=== PATIENT | male | born 1960 | race Caucasian/White ===

== ENCOUNTER 2017-05-17 22:07 | Inpatient (IN) | payer OTHER ==
[~2017-05-17] VITALS: Ht 177.8 cm; Wt 95.0 kg
[~2017-05-17 22:07] MED LIST: ATEN-100 PO; ATOR20TA PO; IPRA0.02 NEB; METF500 PO; MONT10TA2 PO; NITR.4 SL; PRED5TAB; ROPI1TAB; SYMB160A INH; WARF5TAB PO; WARF7.5T4 PO; Z.0.OXYGENDME NC
[2017-05-17 22:11] VITALS: BP 146/86; PULSE 84; RESP 16; TEMP 97.9; O2SAT 93
[2017-05-17] MEDS ORDERED: METF1000 PO (22:29)
[2017-05-17] MEDS ORDERED: GLIM2TAB PO (22:29)
[2017-05-17] MEDS ORDERED: WARF-23 PO (22:29)
[2017-05-17] MEDS ORDERED: IPRASOL INH ×2 (22:29)
[2017-05-17] MEDS ORDERED: UMEC1AER INH (22:29)
[2017-05-17] MEDS ORDERED: PRED5TAB PO (22:29)
[2017-05-17] MEDS ORDERED: VARE1PAK3 (22:29)
[2017-05-17] MEDS ORDERED: ATEN25TA PO (22:29)
[2017-05-17] MEDS ORDERED: VENTAER INH (22:29)
[2017-05-17] MEDS ORDERED: MONTPOW2 (22:29)
[2017-05-17] MEDS ORDERED: ATOR20TA15 PO (22:29)
[2017-05-17] MEDS: RESP: ALBUTEROL 2.5 MG/IPRATROPIUM 0.5 MG NEB (SCH) INH (22:37)
[2017-05-17] MEDS ORDERED: SODIUM CHLORIDE 0.9% FLUSH 10 ML FLUSH IVF PRN (22:45)
[2017-05-17] MEDS ORDERED: methylPREDNISolone SOD SUCC 125 MG/2 ML VIAL IVP ONE (22:45)
[2017-05-17 22:49] VITALS: BP 125/81; PULSE 80; RESP 22; O2SAT 97
[2017-05-17 22:58] LABS: AUTOMATED NEUTROPHIL # 7.2 TH/MM3 (1.8-7.7); BASOPHIL # 0.1 TH/MM3 (0-0.2); BASOPHIL % 0.9 % (0.0-2.0); EOSINOPHIL # 0.3 TH/MM3 (0-0.4); EOSINOPHIL % 3.1 % (0.0-4.0); HEMATOCRIT 44.2 % (39.0-51.0); HEMO FLAGS DIFF FINAL; LYMPH % 18.2 % (9.0-44.0); LYMPHOCYTE # 1.8 TH/MM3 (1.0-4.8); MEAN CELL VOLUME 85.1 FL (80.0-100.0); MEAN CORPUSCULAR HEMOGLOBIN 29.6 PG (27.0-34.0); MEAN CORPUSCULAR HGB CONC 34.8 % (32.0-36.0); NEUT % 72.8 % (16.0-70.0); PLATELET COUNT 184 TH/MM3 (150-450); RED CELL DISTRIBUTION WIDTH 13.2 % (11.6-17.2); WHITE BLOOD COUNT 9.9 TH/MM3 (4.0-11.0)
--- NOTE | 2017-05-17 23:00 | RADRPT ---
EXAM DATE/TIME: 05/17/2017 22:46 [place] COMPARISON: CHEST SINGLE AP, July 09, 2016, 23:28. INDICATIONS : Short of breath. MEDICAL HISTORY : Hypertension. Diabetes mellitus type II. Chronic obstructive pulmonary disease. A-Fib. Asthma. SURGICAL HISTORY : CABG. ENCOUNTER: Initial ACUITY: 1 day PAIN SCORE: 0/10 LOCATION: Bilateral chest FINDINGS: The cardiac silhouette is normal in transverse diameter. The lungs are free of acute parenchymal opac ity. No effusions are identified. Median sternotomy wires are present. There is parenchymal scarring bilaterally. CONCLUSION: 1. No acute cardiopulmonary disease. Jose A Amado MD on May 17, 2017 at 22:58 Board Certified Radiologist. This report was verified electronically.
[2017-05-17 23:15] LABS: APTT (PATIENT) 28.9 SEC (24.3-30.1); CHLORIDE 108 MEQ/L (98-107); INTERNATIONAL NORMALIZED RATIO 1.3 RATIO; POTASSIUM 3.8 MEQ/L (3.5-5.1); PROTHROMBIN TIME - PATIENT 14.2 SEC (9.8-11.6); SODIUM (NA) 139 MEQ/L (136-145)
[2017-05-17 23:18] LABS: ANION GAP 9 MEQ/L (5-15); BICARBONATE 21.6 MEQ/L (21.0-32.0); BLOOD UREA NITROGEN 18 MG/DL (7-18)
[2017-05-17 23:21] LABS: GLOMERULAR FILTRATION RATE 88 ML/MIN (>89)
[2017-05-17 23:24] LABS: CREATINE KINASE 114 U/L (39-308)
[2017-05-17 23:36] LABS: CKMB 1.2 NG/ML (0.5-3.6)
[2017-05-17 23:42] VITALS: BP 126/75; PULSE 88; RESP 20; O2SAT 97
[2017-05-18] VITALS (11 sets, daily range): BP systolic 110–157; BP diastolic 69–85; PULSE 82–107; RESP 17–23; TEMP 97.5–98.5; O2SAT 93–100
[2017-05-18 00:13] LABS: BLOOD, URINE LARGE (NEG); GLUCOSE,URINE NEG (NEG); KETONE, URINE TRACE mg/dL (NEG); NITRITE,URINE NEG (NEG); PH, URINE 5.5 (5.0-8.5)
--- NOTE | 2017-05-18 00:21 | PD ---
HPI Chief Complaint: Respiratory Symptoms Time Seen by Provider: 22:51 Travel History International Travel<30 days: No Contact w/Intl Traveler<30days: No Traveled to known affect area: No History of Present Illness HPI 57-year-old male presents to the emergency department with progressive worsening shortness of breath since yesterday with mild sore throat. Patient states her throat has resolved but his shortness of breath and wheezing has persisted. No productive cough. No fever chills. Patient does complain of chest tightness but no chest pain. No pleuritic pain. No lower extremity pain or swelling. No recent long distance travel protracted bedrest her surgical procedure. Patient does have history of COPD/emphysema and does use supplemental oxygen at all times. Patient admits to to continued ongoing tobacco use. Patient also has history of aortic valve replacement CAD with 20% disease in one vessel on 40% disease and second vessel by cardiac catheterization 06/2016 atrial fibrillation hypertension diabetes and dyslipidemia. Patient rates pain 0/10 in intensity. PFSH Past Medical History Narrative Medical Coumadin anti-coagulation atrial fibrillation aortic valve replacement CAD dyslipidemia hypertension diabetes tobaccoism; cardiac catheterization cardiac ablation aortic valve replacement Coumadin use tobacco use; nursing notes reviewed Hx Anticoagulant Therapy: Yes Asthma: Yes Atrial Fibrillation: Yes Autoimmune Disease: No Heart Rhythm Problems: Yes (A FIB) Cancer: No Cardiovascular Problems: Yes (mechanical aortic valve) High Cholesterol: Yes Chest Pain: Yes Congestive Heart Failure: No COPD: Yes Cerebrovascular Accident: No Diabetes: Yes Patient Takes Glucophage: Yes Diminished Hearing: No Endocrine: Yes Genitourinary: Yes Hypertension: Yes Immune Disorder: No Implanted Vascular Access Dvce: Yes (AORTIC VALVE ) Kidney Stones: Yes Musculoskeletal: No Neurologic: No Psychiatric: No Reproductive: No Respiratory: Yes (COPD) Integumentary: Yes (VENOUS ABLATION RIGHT UPPER THIGH) Immunizations Current: Yes Migraines: No Renal Failure: No Seizures: No Sleep Apnea: Yes (C-PAP AT HOME) Thyroid Disease: No Tetanus Vaccination: Unknown Influenza Vaccination: No ?: Not Past Surgical History Abdominal Surgery: No AICD: No Arteriovenous Shunt: No Body Medical Devices: MECHANICAL HEART VALVE Cardiac Surgery: Yes (AORTIC VALVE REPLACEMENT) Ear Surgery: No Endocrine Surgery: No Eye Surgery: No Genitourinary Surgery: No Gynecologic Surgery: No Insulin Pump: No Joint Replacement: No Neurologic Surgery: Yes (restless leg syndrome cured with ablasion) Oral Surgery: No Pacemaker: No Thoracic Surgery: No Other Surgery: Yes (LEFT HAND NERVE REPAIR) Social History Alcohol Use: No Tobacco Use: Yes Substance Use: No Allergies-Medications (Allergen,Severity, Reaction): Coded Allergies: Penicillin (Verified Allergy, Unknown, UNKNOWN, 05/17/17) Reported Meds & Prescriptions Reported Meds & Active Scripts Active Reported Chantix Starting Month Pack (Varenicline) 0.5 mg X 11 & 1 mg X 42 Pack Atorvastatin (Atorvastatin Calcium) 20 Mg Tab 20 Mg PO HS Glimepiride 2 Mg Tab 2 Mg PO DAILY Take with breakfast or first main meal Warfarin 5 Mg Tab 5 Mg PO DAILY Ventolin Hfa 18 GM Inh (Albuterol Sulfate) 90 Mcg/Act Aer 2 Puff INH Q4-6H PRN Prednisone 5 Mg Tab 5 Mg PO DAILY Montelukast Sodium (Montelukast Sodium (Bulk)) 1 Pow Pow 10 Mg Metformin (Metformin HCl) 1,000 Mg Tab 1,000 Mg PO BIDPC With meals Duoneb (Ipratropium-Albuterol Neb) 0.5-2.5 Mg/3 Ml Neb 1 Nebule INH QID Duoneb (Ipratropium-Albuterol Neb) 0.5-2.5 Mg/3 Ml Neb 1 Nebule INH Q4HR NEB PRN Atenolol 25 Mg Tab 25 Mg PO DAILY Anoro Ellipta Inh (Umeclidinium/Vilanterol) 62.5-25 Mcg/Act Aero 1 Puff INH DAILY Review of Systems Except as stated in HPI: all other systems reviewed are Neg General / Constitutional: No: Fever, Chills HENT: Positive: Sore Throat, No: Congestion Cardiovascular: No: Chest Pain or Discomfort Respiratory: Positive: Cough, Shortness of Breath, Wheezing Gastrointestinal: No: Vomiting, Abdominal Pain Genitourinary: No: Decreased Urinary Output, Flank Pain Musculoskeletal: No: Myalgias, Arthralgias, Edema, Pain Skin: No Rash Neurologic: No: Weakness Psychiatric: No: Anxiety Endocrine: No: Heat Intolerance Hematologic/Lymphatic: No: Easy Bruising Physical Exam Narrative GENERAL: Well-developed well-nourished male in mild to moderate respiratory distress on supplemental oxygen SKIN: Warm and dry. HEAD: Normocephalic. EYES: No scleral icterus. No injection or drainage. NECK: Supple, trachea midline. No JVD or lymphadenopathy. CARDIOVASCULAR: Regular rate and rhythm without murmurs, gallops, or rubs. RESPIRATORY: Breath sounds equal bilaterally marked diffuse wheezing in all faust. No accessory muscle use. GASTROINTESTINAL: Abdomen soft, non-tender, nondistended. MUSCULOSKELETAL: No cyanosis, or edema. Radial and dorsalis pedis pulses 2+ to palpation no pedal edema BACK: Nontender without obvious deformity. No CVA tenderness. Data Data Last Documented VS Vital Signs Date Time Temp Pulse Resp B/P Pulse Ox O2 Delivery O2 Flow Rate FiO2 05/17/17 23:42 88 20 126/75 97 Nasal Cannula 2 05/17/17 22:11 97.9 Orders Complete Blood Count With Diff (05/17/17 22:32) Basic Metabolic Panel (Bmp) (05/17/17 22:32) B-Type Natriuretic Peptide (05/17/17 22:32) Act Partial Throm Time (Ptt) (05/17/17 22:32) Prothrombin Time / Inr (Pt) (05/17/17 22:32) Magnesium (Mg) (05/17/17 22:32) Ckmb (Isoenzyme) Profile (05/17/17 22:32) Troponin I (05/17/17 22:32) Urinalysis - C+S If Indicated (05/17/17 22:32) Iv Access Insert/Monitor (05/17/17 22:32) Electrocardiogram (05/17/17 22:32) Ecg Monitoring (05/17/17 22:32) Oximetry (05/17/17 22:32) Oxygen Administration (05/17/17 22:32) Chest, Single Ap (05/17/17 22:32) Sodium Chloride 0.9% Flush (Ns Flush) (05/17/17 22:45) Methylprednisolone So Succ Inj (Solumedr (05/17/17 22:45) Albuterol-Ipratropium Neb (Duoneb Neb) (05/17/17 22:45) CKMB (05/17/17 22:47) CKMB% (05/17/17 22:47) Admit Order (Ed Use Only) (05/18/17 ) ^ Saline Lock (05/18/17 00:28) Resp Oxygen Cale C Titrat 1-4 L (05/18/17 ) Notify Dr: Other (05/18/17 00:28) Sodium Chloride 0.9% Flush (Ns Flush) (05/18/17 09:00) Sodium Chloride 0.9% Flush (Ns Flush) (05/18/17 00:30) Warfarin (Coumadin) (05/18/17 00:30) Group A Rapid Strep Screen (05/18/17 00:29) Labs Laboratory Tests Test 05/17/17 05/18/17 22:47 00:00 White Blood Count 9.9 TH/MM3 Red Blood Count 5.20 MIL/MM3 Hemoglobin 15.4 GM/DL Hematocrit 44.2 % Mean Corpuscular Volume 85.1 FL Mean Corpuscular Hemoglobin 29.6 PG Mean Corpuscular Hemoglobin 34.8 % Concent Red Cell Distribution Width 13.2 % Platelet Count 184 TH/MM3 Mean Platelet Volume 9.3 FL Neutrophils (%) (Auto) 72.8 % Lymphocytes (%) (Auto) 18.2 % Monocytes (%) (Auto) 5.0 % Eosinophils (%) (Auto) 3.1 % Basophils (%) (Auto) 0.9 % Neutrophils # (Auto) 7.2 TH/MM3 Lymphocytes # (Auto) 1.8 TH/MM3 Monocytes # (Auto) 0.5 TH/MM3 Eosinophils # (Auto) 0.3 TH/MM3 Basophils # (Auto) 0.1 TH/MM3 CBC Comment DIFF FINAL Differential Comment Prothrombin Time 14.2 SEC Prothromb Time International 1.3 RATIO Ratio Activated Partial 28.9 SEC Thromboplast Time Sodium Level 139 MEQ/L Potassium Level 3.8 MEQ/L Chloride Level 108 MEQ/L Carbon Dioxide Level 21.6 MEQ/L Anion Gap 9 MEQ/L Blood Urea Nitrogen 18 MG/DL Creatinine 0.89 MG/DL Estimat Glomerular Filtration 88 ML/MIN Rate Random Glucose 178 MG/DL Calcium Level 8.5 MG/DL Magnesium Level 2.0 MG/DL Total Creatine Kinase 114 U/L Creatine Kinase MB 1.2 NG/ML Troponin I LESS THAN 0.02 NG/ML B-Type Natriuretic Peptide 30 PG/ML Urine Color YELLOW Urine Turbidity SLIGHT Urine pH 5.5 Urine Specific [place] 1.035 Urine Protein NEG mg/dL Urine Glucose (UA) NEG mg/dL Urine Ketones TRACE mg/dL Urine Occult Blood LARGE Urine Nitrite NEG Urine Bilirubin NEG Urine Leukocyte Esterase NEG Urine RBC 50-99 /hpf Urine WBC 0-2 /hpf Urine Squamous Epithelial 0-5 /hpf Cells Urine Bacteria NONE /hpf Microscopic Urinalysis Comment CULT NOT INDICATED MDM Medical Decision Making Medical Screen Exam Complete: Yes Emergency Medical Condition: Yes Medical Record Reviewed: Yes Interpretation(s) EKG normal sinus rhythm rate 80 right bundle branch block no acute ST elevation or injury pattern change or ectopy noted Differential Diagnosis Dyspnea, exacerbation COPD, pneumonia, PE, ACS, SC, CHF, arrhythmia, electrolyte disturbance, sepsis Narrative Course Patient placed on monitor IV access obtained EKG performed which reveals normal sinus rhythm rate of 80 right bundle branch block no acute ST elevation or injury pattern imaging studies ordered Patient administered Solu-Medrol 125 mg IV along with 3 DuoNeb updrafts Patient clinically improving after bronchodilator therapy Lab values found to be grossly within normal range chest x-ray reveals no lobar infiltrate or focal abnormality Patient will be admitted for exacerbation of COPD Physician Communication Physician Communication Case discussed with [facility] physician Dr. Metzger will admit patient for exacerbation COPD Diagnosis Primary Impression: COPD with acute exacerbation Admitting Information Admitting Physician Requests: Admit Bouchra Nation MD May 18, 2017 00:21
[2017-05-18 00:22] LABS: URINE COLOR YELLOW (YELLW/STRAW)
[2017-05-18 00:23] LABS: COMMENT (UR) CULT NOT INDICATED; CULTURE IF INDICATED CULT NOT INDICATED; SQUAMOUS EPITHELIAL CELL URINE 0-5 /hpf (0-5); WBC, URINE 0-2 /hpf (0-5)
[2017-05-18] MEDS ORDERED: SODIUM CHLORIDE 0.9% FLUSH 10 ML FLUSH IVF PRN (00:30)
[2017-05-18] MEDS ORDERED: SODIUM CHLORIDE 0.9% FLUSH 10 ML FLUSH IV FLUSH PRN (00:30)
[2017-05-18] MEDS ORDERED: WARFARIN SOD 2.5 MG TAB PO ONE (00:30)
[2017-05-18] MEDS ORDERED: RESP: ALBUTEROL 2.5 MG/IPRATROPIUM 0.5 MG NEB (SCH) NEB ONE (00:45)
[2017-05-18] MEDS ORDERED: WARFARIN SOD 5 MG TAB PO ONE (00:45)
[2017-05-18] MEDS ORDERED: LEVOFLOXACIN 750 MG TAB PO SCH ×2 (01:00→21:00)
[2017-05-18] MEDS: RESP: ALBUTEROL 2.5 MG/IPRATROPIUM 0.5 MG NEB (SCH) NEB ×6 (04:02→23:08)
[2017-05-18] MEDS: methylPREDNISolone SOD SUCC 40 MG/1 ML VIAL IV PUSH SCH ×3 (05:10→21:02)
--- NOTE | 2017-05-18 08:35 | MH ---
cc: ANA LAURA STERLING M.D. DATE OF ADMISSION: 05/18/2017 ADMISSION DIAGNOSIS 1. COPD with acute exacerbation. 2. Type 2 diabetes mellitus. 3. Hyperlipidemia. 4. [employer] Giorgi's mechanical aortic valve. 5. Paroxysmal atrial fibrillation. 6. Sleep apnea. 7. Emphysema. 8. History of asthma. 9. Microhematuria. 10. Chronic Coumadin therapy for his mechanical valve. PERTINENT HISTORY This is a 57-year-old white male who presented to the emergency room with progressive shortness of breath in the last 24 hours prior to admission with slight sore throat. He had a slight runny nose, little bit of increased cough. He denied any fever, chills, no body aches. No nausea, vomiting. He felt tight with his breathing. He had been using his duo-nebulizer treatments at home with no improvement. He has history of asthma since he was young and COPD and emphysema since about 10 years ago. He has been on oxygen therapy at night and only occasionally uses it during the daytime. He is on chronic low dose prednisone therapy as well for his COPD. He was given nebulizer treatments in the ER without significant clinical improvement, he was still tight. He was admitted for IV steroids. He states he feels a little better this morning but still wheezing quite a bit. No other complaints. MEDICAL HISTORY 1. He has as mentioned asthma since he was young and then diagnosed with COPD and emphysema around 10 years ago. 2. He has sleep apnea and uses C-PAP. 3. He has chronic respiratory failure with oxygen at night. 4. He has had atrial fibrillation in the past but is maintained in sinus rhythm. He is on atenolol. 5. He has type 2 diabetes mellitus for about 10 years. 6. Hyperlipidemia. 7. He denies any heart attack or angina. He did have a cardiac cath done on 09/07/2016 which showed just minimal coronary artery disease with a minimal luminal irregularities of the LAD and only a 20% lesion before the first septal. He had a second obtuse marginal branch of the circumflex, had a 40% lesion, otherwise was negative. His cath then showed that he did have a bileaflet mechanical aortic valve. He has had no colon disease and states he had a negative colonoscopy 4 years ago. He has had no liver or kidney disease. No peptic ulcer disease. No cancer. No stroke or seizures. Denies any history of hypertension. PAST SURGICAL HISTORY 1. A [employer] Giorgi's mechanical aortic valve placed, he states around 2012. 2. Had cardiac cath in 2015 as mentioned. 3. Had a colonoscopy around 2011. 4. He has left hand surgery to repair some nerves after he sustained significant lacerations to his finger and hands from a work injury. ALLERGIES PENCILLIN. MEDICATIONS 1. He is on atorvastatin 20 mg a day. 2. Glimepiride 2 mg daily. 3. Warfarin, he apparently is taking 5 mg one day, 7.5 mg the next. 4. He is on prednisone 5 mg a day. 5. Montelukast 10 mg one a day. 6. Metformin 1000 mg twice a day. 7. Duo-nebulizer treatments he uses generally he states [id number] times a day. 8. He has Anoro Ellipta inhaler 62.5/25 mcg one puff daily. FAMILY HISTORY Both his parents of COPD, his mother at 65, father at 69. SOCIAL HISTORY He still smokes a pack a day. He smoked since age 16. He is . Rarely uses alcohol. He is retired diesel engine assembler. REVIEW OF SYSTEMS GENERAL: No fever, chills or sweats. HEENT: Slight sore throat, runny nose, otherwise negative. CARDIOVASCULAR: No angina, orthopnea, PND. PULMONARY: As mentioned. GI: No nausea, vomiting, constipation, diarrhea. : Gets up one or two times at night to urinate. Has not noticed any blood in the urine. No dysuria. EXTREMITIES: Without swelling. SKIN: Without rash. NEURO: No weakness, sensory loss or confusion. PHYSICAL EXAMINATION GENERAL: Pleasant male with some audible wheezing but no apparent distress. VITAL SIGNS: O2 sats 95% on 2 liters, BP 120/77, respirations 18, temperature 97.6. Pulse 86. HEENT: Pupils equal. Sclerae nonicteric. Nose without lesion. Mouth without inflammation or lesion. NECK: Without bruit. No JVD. HEART: Regular rate and rhythm. No murmur. LUNGS: With quite a bit of wheezing still throughout on inspiration and expiration. He does not however, appear to be in any respiratory distress. ABDOMEN: Abdomen is soft, nontender, no masses. EXTREMITIES: No edema. Good pulses both feet. SKIN: Negative. NEURO: Oriented x3. Cranial nerves, motor sensory intact. LABORATORY DATA White count was 9.9, hemoglobin 15.4, platelets 184,000,72.8% neutrophils, 18.2 lymphs, 5 monos, random glucose was 178, troponin, CK normal, BUN 18, creatinine 0.89, GFR 88. Sodium, potassium, chloride, CO2 normal. His INR last night was 1.3. His urine showed large occult blood and 50-99 RBCs. IMAGING STUDIES Chest x-ray showed no acute cardiopulmonary process. ASSESSMENT As noted. PLAN The patient has been admitted and put on some IV Solu-Medrol. He is being maintained on duo-nebulizer treatments. Put him on Levaquin p.o. We will monitor his Accu-Cheks but will put him on a diabetic diet, low cholesterol diet and just maintain his metformin and glimepiride for now. Hopefully he will respond to steroids today and be able to be discharged within the next day or two. We gave him an extra dose of warfarin last night ___ was low and will change his warfarin to 7.5 mg four days out of the week and 5 mg three days out of the week. He will potentially need to follow up on his urine and microhematuria but this can be done as an outpatient. MD MUMTAZ Tyson/AILYN /7:12 AM /8:04 AM
[2017-05-18] MEDS: metFORMIN HCL 500 MG TAB PO SCH ×2 (08:36→16:56)
[2017-05-18] MEDS: ATENOLOL 25 MG TAB PO SCH (08:36)
[2017-05-18] MEDS: GLIMEPIRIDE 2 MG TAB PO SCH (08:36)
[2017-05-18] MEDS: SODIUM CHLORIDE 0.9% FLUSH 10 ML FLUSH IV FLUSH SCH ×2 (08:37→21:00)
[2017-05-18 08:55] LABS: INTERNATIONAL NORMALIZED RATIO 1.5 RATIO; PROTHROMBIN TIME - PATIENT 17.4 SEC (9.8-11.6)
[2017-05-18] MEDS ORDERED: SODIUM CHLORIDE 0.9% FLUSH 10 ML FLUSH IV FLUSH SCH (09:00)
[2017-05-18] MEDS ORDERED: DEXTROSE 50% IN WATER 50 ML VIAL(D50) IV PUSH PRN ×2 (14:30→17:45)
[2017-05-18] MEDS ORDERED: PLEASE DISCONTINUE PREVIOUS SUPPLEMENTAL SCALE INSULIN ORDERS ONE (14:30)
[2017-05-18] MEDS ORDERED: GLUCAGON 1 MG/ML VIAL OTHER PRN ×2 (14:30→17:45)
[2017-05-18] MEDS ORDERED: LOW DOSE INSULIN NOVOLIN REGULAR SUPPLEMENTAL SCALE SQ SCH (16:00)
[2017-05-18] MEDS ORDERED: WARFARIN SOD 7.5 MG TAB PO SCH (16:00)
--- NOTE | 2017-05-18 17:27 | EKG ---
Date Performed: 05/17/2017 Time Performed: 22:24:28 PTAGE: 57 years EKG: Sinus rhythm RIGHT BUNDLE BRANCH BLOCK LEFT ANTERIOR FASCICULAR BLOCK ABNORMAL ECG PREVIOUS TRACING : 07/10/2016 04.59.04 DOCTOR: Dao Mason Interpretating Date/Time 05/18/2017 17:26:05
[2017-05-18] MEDS ORDERED: ATORVASTATIN 20 MG TAB PO SCH (21:00)
[2017-05-18] MEDS: LOW DOSE INSULIN NOVOLOG SUPPLEMENTAL SCALE SQ SCH (21:07)
[2017-05-19] VITALS: BP 112/74; PULSE 116; RESP 20; TEMP 98.8; O2SAT 92
[2017-05-19 04:00] VITALS: BP 133/88; PULSE 110; RESP 20; TEMP 98.2; O2SAT 92
[2017-05-19] MEDS: RESP: ALBUTEROL 2.5 MG/IPRATROPIUM 0.5 MG NEB (SCH) NEB ×2 (04:31→07:33)
[2017-05-19] MEDS: methylPREDNISolone SOD SUCC 40 MG/1 ML VIAL IV PUSH SCH (05:05)
[2017-05-19 05:56] LABS: PROTHROMBIN TIME - PATIENT 22.4 SEC (9.8-11.6)
[2017-05-19] MEDS: LOW DOSE INSULIN NOVOLOG SUPPLEMENTAL SCALE SQ SCH (07:00)
--- NOTE | 2017-05-19 07:19 | HHI.PR ---
Subjective Remarks Feeling much better. Less SOB. Ambulating in room. Tolerating PO. Desires d/c home. Reports that he had missed a "couple" of days of warfarin before coming to hospital. Objective Vitals Vital Signs Date Time Temp Pulse Resp B/P Pulse Ox O2 Delivery O2 Flow Rate FiO2 05/19/17 04:00 98.2 110 20 133/88 92 05/19/17 00:00 98.8 116 20 112/74 92 05/18/17 20:00 98.0 107 21 110/72 100 05/18/17 20:00 107 05/18/17 19:19 94 21 05/18/17 19:00 100 Room Air 05/18/17 16:00 98.5 103 20 125/69 93 05/18/17 12:00 98.0 82 17 140/82 94 05/18/17 10:47 97.5 86 18 157/85 96 05/18/17 08:00 94 05/18/17 08:00 96 Room Air 05/18/17 07:28 93 21 05/18/17 05/18/17 05/19/17 15:00 23:00 07:00 Intake Total 1640 ml 600 ml Output Total 2100 ml 1000 ml Balance -460 ml -400 ml Intake Oral 1640 ml 600 ml Output Urine Total 2100 ml 1000 ml # Bowel Movements 0 GENERAL: obese, sitting in chair, NAD, cooperative and pleasant, A/O SKIN: Warm and dry. HEAD: Normocephalic. EYES: No scleral icterus. No injection or drainage. NECK: Supple, trachea midline. No JVD or lymphadenopathy. CARDIOVASCULAR: Regular rate and rhythm with slight tachycardia noted, no gallops, or rubs. RESPIRATORY: Breath sounds equal bilaterally. No accessory muscle use. Few expiratory wheezes with prolonged exp phase in bases, o/w CTA with good air movement. GASTROINTESTINAL: Abdomen soft, non-tender, nondistended. BS wnl MUSCULOSKELETAL: No cyanosis, or edema. BACK: Nontender without obvious deformity. Result Diagram: 05/17/17224605/17/[id number] Imaging Last 72 hours Impressions Chest X-Ray 05/17/172231 Signed Impressions: Service Date/Time: Wednesday, May 17, 2017 22:46 - CONCLUSION: 1. No acute cardiopulmonary disease. Jose A Amado MD Urinary Catheter: No Vascular Central Line Catheter: No A/P Problem List: (1) COPD with acute exacerbation Status: Acute Plan: continue nebs, supplemental oxygen, steroids, abx. Strongly encouraged to stop smoking. Will d/c home. (2) Hyperlipidemia Status: Chronic Plan: continue tx (3) DM (diabetes mellitus) Status: Chronic Plan: Sugars running a bit high in hospital likely due to steroid use. Continue Accucheck with SSI here. Will resume home meds at d/c. (4) HTN (hypertension) Status: Chronic Plan: Fair control. Continue current tx. (5) Hematuria Status: Acute Plan: Will need further outpt eval if not already done given his chronic smoking hx. He reports that he has not had this issue before to his knowledge. (6) History of aortic valve replacement Status: Chronic Plan: Has mechanical valve. Encouraged him to take warfarin as directed. Will resume his previous home dose since he had missed a few doses prior to admission. Repeat INR later this week. Discharge Planning d/c home today. see Dr Campo later this week. Problem Qualifiers (1) Hyperlipidemia: Qualified Code: E78.00 - Pure hypercholesterolemia (2) DM (diabetes mellitus): Luis Miguel Restrepo MD PhD May 19, 2017 07:19
[2017-05-19 08:00] VITALS: BP 131/63; PULSE 108; RESP 16; TEMP 97.4; O2SAT 93
[2017-05-19] MEDS ORDERED: OXYGENDME NAS.CANULA (08:03)
[2017-05-19] MEDS ORDERED: COUM5TAB PO (08:03)
[2017-05-19] MEDS ORDERED: LEVA750T9 PO (08:03)
[2017-05-19] MEDS ORDERED: COUM7.5T PO (08:03)
[2017-05-19] MEDS ORDERED: PRED20 PO (08:04)
[2017-05-19] MEDS: SODIUM CHLORIDE 0.9% FLUSH 10 ML FLUSH IV FLUSH SCH (08:12)
[2017-05-19] MEDS: GLIMEPIRIDE 2 MG TAB PO SCH (08:12)
[2017-05-19] MEDS: ATENOLOL 25 MG TAB PO SCH (08:12)
[2017-05-19] MEDS: metFORMIN HCL 500 MG TAB PO SCH (08:12)
[2017-05-19] MEDS ORDERED: WARFARIN SOD 5 MG TAB PO SCH (16:00)
== END 2017-05-19 09:49 | disposition home or self-care (01) | DRG 191 ==
LOC: PHED 22:07 → PHEDA 05-18 00:30 → PHICU 05-18 03:40
PROVIDERS: ADMIT Family Medicine; ATTEND Family Medicine
DX: J44.1 Chronic obstructive pulmonary disease with (acute) exacerbation (principal); J96.10 Chronic respiratory failure, unspecified whether with hypoxia or hypercapnia; E11.65 Type 2 diabetes mellitus with hyperglycemia; I48.0 Paroxysmal atrial fibrillation; F17.210 Nicotine dependence, cigarettes, uncomplicated; I25.10 Atherosclerotic heart disease of native coronary artery without angina pectoris; I10 Essential (primary) hypertension; E78.5 Hyperlipidemia, unspecified; G47.30 Sleep apnea, unspecified; R31.29 Other microscopic hematuria; T38.0X5A Adverse effect of glucocorticoids and synthetic analogues, initial encounter; Z95.1 Presence of aortocoronary bypass graft; Z79.84 Long term (current) use of oral hypoglycemic drugs; Z99.81 Dependence on supplemental oxygen; Z79.01 Long term (current) use of anticoagulants; Z95.2 Presence of prosthetic heart valve
CPT/HCPCS: 71010; 80048; 81001; 82550; 82552; 82948; 83735; 83880; 84484; 85025; 85610; 85730; 87081; 87880; 93005; 94640; 94664; J1815; J2920; J2930

== ENCOUNTER 2017-09-25 12:02 | Inpatient (IN) | payer OTHER ==
[~2017-09-25] VITALS: Ht 177.8 cm; Wt 95.6 kg
[2017-09-25] VITALS (13 sets, daily range): BP systolic 141–167; BP diastolic 76–98; PULSE 92–121; RESP 16–29; TEMP 97.8–98.5; O2SAT 94–98
[~2017-09-25 12:02] MED LIST changes: -ATEN-100 PO; +ATEN25TA PO; -ATOR20TA PO; +ATOR20TA15 PO; +COUM5TAB PO; +COUM7.5T PO; +GLIM2TAB PO; -IPRA0.02 NEB; +IPRASOL INH; +LEVA750T9 PO; +METF1000 PO; -METF500 PO; -MONT10TA2 PO; +MONTPOW2; -NITR.4 SL; +OXYGENDME NAS.CANULA; +PRED20 PO; -PRED5TAB; +PRED5TAB PO; -ROPI1TAB; -SYMB160A INH; +UMEC1AER INH; +VARE1PAK3; +VENTAER INH; +WARF-23 PO; -WARF5TAB PO; -WARF7.5T4 PO; -Z.0.OXYGENDME NC
--- NOTE | 2017-09-25 12:25 | PD ---
HPI Chief Complaint: Respiratory Symptoms Time Seen by Provider: 12:18 Travel History International Travel<30 days: No Contact w/Intl Traveler<30days: No Traveled to known affect area: No History of Present Illness HPI 57yo M with PMH of COPD on home O2 2LNC, CPAP at night and low dose prednisone, mechanical aortic valve on coumadin, paroxysmal afib, DM presents to the ED with c/o sob since yesterday. Said he took his COPD medications but still sob. Also with worsening cough and nasal congestion for a few days. Tactile fever. Denies any chest pain, n/v, abdominal pain, focal weakness or numbness, PE/DVT. PFSH Past Medical History Hx Anticoagulant Therapy: Yes Asthma: Yes Atrial Fibrillation: Yes Autoimmune Disease: No Heart Rhythm Problems: Yes (A FIB) Cancer: No Cardiovascular Problems: Yes (mechanical aortic valve) High Cholesterol: Yes Chest Pain: Yes Congestive Heart Failure: No COPD: Yes Cerebrovascular Accident: No Diabetes: Yes Diminished Hearing: No Endocrine: Yes Genitourinary: Yes Hypertension: Yes Immune Disorder: No Implanted Vascular Access Dvce: Yes (AORTIC VALVE ) Kidney Stones: Yes Musculoskeletal: No Neurologic: No Psychiatric: No Reproductive: No Respiratory: Yes (COPD) Integumentary: Yes (VENOUS ABLATION RIGHT UPPER THIGH) Immunizations Current: Yes Migraines: No Renal Failure: No Seizures: No Sleep Apnea: Yes (C-PAP AT HOME) Thyroid Disease: No Past Surgical History Abdominal Surgery: No AICD: No Arteriovenous Shunt: No Body Medical Devices: MECHANICAL HEART VALVE Cardiac Surgery: Yes (AORTIC VALVE REPLACEMENT) Ear Surgery: No Endocrine Surgery: No Eye Surgery: No Genitourinary Surgery: No Gynecologic Surgery: No Insulin Pump: No Joint Replacement: No Neurologic Surgery: Yes (restless leg syndrome cured with ablasion) Oral Surgery: No Pacemaker: No Thoracic Surgery: No Other Surgery: Yes (LEFT HAND NERVE REPAIR) Social History Alcohol Use: No Tobacco Use: Yes Substance Use: No Allergies-Medications (Allergen,Severity, Reaction): Coded Allergies: penicillin G (Unverified Allergy, Unknown, UNKNOWN, 09/25/17) Reported Meds & Prescriptions Reported Meds & Active Scripts Active Coumadin (Warfarin) 7.5 Mg Tab 7.5 Mg PO SUTUTHSA@16 Reported Oxygen (O2) Device 2 Liter STEPHANIE.CANULA CONTINUOUS Oxygen Concentrator Portable Gaseous 2 L/min via Nasal Canula Continuous For 99 months Atorvastatin (Atorvastatin Calcium) 20 Mg Tab 20 Mg PO HS Glimepiride 2 Mg Tab 2 Mg PO DAILY Take with breakfast or first main meal Warfarin 5 Mg Tab 5 Mg PO DAILY Ventolin Hfa 18 GM Inh (Albuterol Sulfate) 90 Mcg/Act Aer 2 Puff INH Q4-6H PRN Prednisone 5 Mg Tab 5 Mg PO DAILY Montelukast Sodium (Montelukast Sodium (Bulk)) 1 Pow Pow 10 Mg Metformin (Metformin HCl) 1,000 Mg Tab 500 Mg PO BIDPC With meals Duoneb (Ipratropium-Albuterol Neb) 0.5-2.5 Mg/3 Ml Neb 1 Nebule INH Q4HR NEB PRN Atenolol 25 Mg Tab 25 Mg PO DAILY Anoro Ellipta Inh (Umeclidinium/Vilanterol) 62.5-25 Mcg/Act Aero 1 Puff INH DAILY Review of Systems Except as stated in HPI: all other systems reviewed are Neg Physical Exam Narrative GENERAL: 57yo M in mild distress. SKIN: Focused skin assessment warm/dry. HEAD: Atraumatic. Normocephalic. EYES: Pupils equal and round. No scleral icterus. No injection or drainage. ENT: No nasal bleeding or discharge. Mucous membranes pink and moist. NECK: Trachea midline. No JVD. CARDIOVASCULAR: Regular and tachycardic at 112bpm. RESPIRATORY: + accessory muscle use. Expiratory wheezing bilaterally. GASTROINTESTINAL: Abdomen soft, non-tender, nondistended. MUSCULOSKELETAL: No obvious deformities. No clubbing. No cyanosis. No edema. No calf tenderness. NEUROLOGICAL: Awake and alert. No obvious cranial nerve deficits. Motor grossly within normal limits. Normal speech. PSYCHIATRIC: Appropriate mood and affect; insight and judgment normal. Data Data Last Documented VS Vital Signs Date Time Temp Pulse Resp B/P (MAP) Pulse Ox O2 Delivery O2 Flow Rate FiO2 09/25/17 14:04 98 BiPAP 40 09/25/17 14:04 116 26 153/98 (116) 09/25/17 13:01 98.3 2.00 Orders Orders Blood Culture (09/25/17 12:19) Complete Blood Count With Diff (09/25/17 12:19) Basic Metabolic Panel (Bmp) (09/25/17 12:19) B-Type Natriuretic Peptide (09/25/17 12:19) Act Partial Throm Time (Ptt) (09/25/17 12:19) Prothrombin Time / Inr (Pt) (09/25/17 12:19) Magnesium (Mg) (09/25/17 12:19) Troponin I (09/25/17 12:19) Electrocardiogram (09/25/17 12:19) Chest, Single Ap (09/25/17 12:19) Methylprednisolone So Succ Inj (Solumedr (09/25/17 12:30) Albuterol-Ipratropium Neb (Duoneb Neb) (09/25/17 12:30) Lactic Acid Sepsis Protocol (09/25/17 12:25) Sodium Chlor 0.9% 1000 Ml Inj (Ns 1000 M (09/25/17 12:30) Resp Bipap / Cpap Non Invas Vt (09/25/17 ) Arterial Blood Gas (Abg) (09/25/17 ) Admit Order (Ed Use Only) (09/25/17 14:16) Labs Laboratory Tests Test 09/25/17 12:27 White Blood Count 10.3 TH/MM3 Red Blood Count 5.75 MIL/MM3 Hemoglobin 16.2 GM/DL Hematocrit 48.4 % Mean Corpuscular Volume 84.2 FL Mean Corpuscular Hemoglobin 28.2 PG Mean Corpuscular Hemoglobin Concent 33.5 % Red Cell Distribution Width 13.6 % Platelet Count 213 TH/MM3 Mean Platelet Volume 8.8 FL Neutrophils (%) (Auto) 76.3 % Lymphocytes (%) (Auto) 12.9 % Monocytes (%) (Auto) 7.1 % Eosinophils (%) (Auto) 1.1 % Basophils (%) (Auto) 2.6 % Neutrophils # (Auto) 7.9 TH/MM3 Lymphocytes # (Auto) 1.3 TH/MM3 Monocytes # (Auto) 0.7 TH/MM3 Eosinophils # (Auto) 0.1 TH/MM3 Basophils # (Auto) 0.3 TH/MM3 CBC Comment DIFF FINAL Differential Comment Prothrombin Time 42.9 SEC Prothromb Time International Ratio 4.3 RATIO Activated Partial Thromboplast Time 43.4 SEC Blood Urea Nitrogen 17 MG/DL Creatinine 1.00 MG/DL Random Glucose 152 MG/DL Calcium Level 9.1 MG/DL Magnesium Level 2.1 MG/DL Sodium Level 139 MEQ/L Potassium Level 4.3 MEQ/L Chloride Level 104 MEQ/L Carbon Dioxide Level 24.6 MEQ/L Anion Gap 10 MEQ/L Estimat Glomerular Filtration Rate 77 ML/MIN Lactic Acid Level 2.7 mmol/L Troponin I LESS THAN 0.02 NG/ML B-Type Natriuretic Peptide 19 PG/ML [facility] Medical Decision Making Medical Screen Exam Complete: Yes Emergency Medical Condition: Yes Interpretation(s) EKG: Sinus tachycardia at 111bpm. LAD. RBBB. No ST segment elevation or depression. Differential Diagnosis COPD exacerbation vs. Pneumonia vs. URI Narrative Course 57yo M here with wheezing and sob since yesterday. Pt is tachycardic in the 110s. Pt given duonebs x3 and methylprednisolone 125mg IV. Pt reevaluated at bedside and still feels very sob. Still wheezing bilaterally and tachypneic. Said he still cant breathe and feels horrible. Pt uses a CPAP at home and when he is short of breath so will try it. Pt is receiving 1 liter of NS IVF. Pt is more tachycardic at 120bpm now but may be due to albuterol nebulizer treatments. Labs reviewed, no leukocytosis. Neutrophil elevated at 76.3%. Lactic acid is elevated at 2.7. Troponin negative. INR is supratherapeutic at 4.3. CXR showed discoid atelectasis within right lung base. Pt reevaluated at bedside and HR is now down to 108bpm. Pt has been on the BIPAP and said he feels much better. Still wheezing bilaterally but pt is less tachypneic. Appears much more comfortable on BIPAP. Will admit for COPD exacerbation. Discussed with Dr. Dempsey and accepted to her service. Critical Care Narrative Aggregate critical care time was 40 minutes. Time to perform other separately billable procedures was not included in the critical care time. My time did not include minutes spent treating any other patients simultaneously or on activities that did not directly contribute to the patient's treatment. The services I provided to this patient were to treat and/or prevent clinically significant deterioration that could result in: respiratory distress or . I provided critical care services requiring my management, as noted below: Chart data review, documentation time, medication orders and management, vital sign assessments/reviewing monitor data, ordering and reviewing lab tests, ordering and interpreting/reviewing x-rays and diagnostic studies, care of the patient and discussion of the patient with the admitting physicians. Diagnosis Primary Impression: COPD with acute exacerbation Admitting Information Admitting Physician Requests: Admit Rubina Kelly DO Sep 25, 2017 12:25
[2017-09-25] MEDS ORDERED: SODIUM CHLOR 0.9% 1000 ML INJ 1,000 ML IV ONE (12:30)
[2017-09-25] MEDS ORDERED: methylPREDNISolone SOD SUCC 125 MG/2 ML VIAL IV PUSH ONE (12:30)
[2017-09-25] MEDS: RESP: ALBUTEROL 2.5 MG/IPRATROPIUM 0.5 MG NEB (SCH) INH ×2 (12:34→19:56)
[2017-09-25 12:39] LABS: AUTOMATED NEUTROPHIL # 7.9 TH/MM3 (1.8-7.7); BASOPHIL # 0.3 TH/MM3 (0-0.2); BASOPHIL % 2.6 % (0.0-2.0); EOSINOPHIL # 0.1 TH/MM3 (0-0.4); EOSINOPHIL % 1.1 % (0.0-4.0); HEMATOCRIT 48.4 % (39.0-51.0); HEMO FLAGS DIFF FINAL; LYMPH % 12.9 % (9.0-44.0); LYMPHOCYTE # 1.3 TH/MM3 (1.0-4.8); MEAN CELL VOLUME 84.2 FL (80.0-100.0); MEAN CORPUSCULAR HEMOGLOBIN 28.2 PG (27.0-34.0); MEAN CORPUSCULAR HGB CONC 33.5 % (32.0-36.0); MONO % 7.1 % (0.0-8.0); NEUT % 76.3 % (16.0-70.0); PLATELET COUNT 213 TH/MM3 (150-450); RED BLOOD COUNT 5.75 MIL/MM3 (4.50-5.90); RED CELL DISTRIBUTION WIDTH 13.6 % (11.6-17.2); WHITE BLOOD COUNT 10.3 TH/MM3 (4.0-11.0)
[2017-09-25 12:48] LABS: CHLORIDE 104 MEQ/L (98-107); SODIUM (NA) 139 MEQ/L (136-145)
[2017-09-25 12:51] LABS: ANION GAP 10 MEQ/L (5-15); BICARBONATE 24.6 MEQ/L (21.0-32.0); BLOOD UREA NITROGEN 17 MG/DL (7-18); MAGNESIUM 2.1 MG/DL (1.5-2.5)
--- NOTE | 2017-09-25 12:53 | RADRPT ---
EXAM DATE/TIME: 09/25/2017 12:30 [facility] COMPARISON: CT ABDOMEN & PELVIS W/O CONTRAST, July 25, 2015, 12:52. CHEST SINGLE AP, July 09, 2016, 23:2 8. CHEST SINGLE AP, May 17, 2017, 22:46. INDICATIONS : Severe shortness of breath, chest tightness. MEDICAL HISTORY : Hypertension. Diabetes mellitus type 2. Chronic obstructive pulmonary disease. Asthma, atrial fibrill ation, high cholesterol and venous ablation. SURGICAL HISTORY : Aortic valve replacement ENCOUNTER: Initial ACUITY: 2 days PAIN SCORE: 0/10 LOCATION: chest FINDINGS: Discoid atelectasis is noted within the right lung base. The lungs are otherwise clear. The heart is stable. No pulmonary edema is noted. Median sternotomy wires are noted status post cardiac surgery. CONCLUSION: Discoid atelectasis within the right lung base. Denver Oviedo MD on September 25, 2017 at 12:49 Board Certified Radiologist. This report was verified electronically.
[2017-09-25 12:54] LABS: APTT (PATIENT) 43.4 SEC (24.3-30.1); GLOMERULAR FILTRATION RATE 77 ML/MIN (>89); INTERNATIONAL NORMALIZED RATIO 4.3 RATIO; PROTHROMBIN TIME - PATIENT 42.9 SEC (9.8-11.6)
[2017-09-25 12:56] LABS: POTASSIUM 4.3 MEQ/L (3.5-5.1)
[2017-09-25 14:28] LABS: BLOOD GAS BASE EXCESS -3.5 mmol/L (-2-2); BLOOD GAS CARBOXYHEMOGLOBIN 1.8 % (0-4); BLOOD GAS HCO3 21 mmol/L (22-26); BLOOD GAS METHEMOGLOBIN 1.1 % (0-2); BLOOD GAS O2 HGB SATURATION 96 % (90-100); BLOOD GAS OXYGEN CONTENT 21.4 Vol % (12.0-20.0); BLOOD GAS PCO2 40 mmHG (38-42); BLOOD GAS PO2 136 mmHG (61-120); BLOOD GAS TOTAL HGB 15.8 G/DL (12.0-16.0); CRITICAL VALUE NO; OXYGEN DEVICE BIPAP; TEMP CORR TO 98.6
[2017-09-25 14:29] LABS: DRAW SITE RT RADIAL; FIO2 40 %; NUMBER OF ARTERIAL PUNCTURES 1; STAT NO; ULNAR PULSE Y; VENT SETTINGS IPAP 10/EPAP 5
[2017-09-25 14:34] LABS: LACTIC ACID GHOST NOT REPORTABLE
[2017-09-25] MEDS ORDERED: SODIUM CHLORIDE 0.9% FLUSH 10 ML FLUSH IV FLUSH PRN (17:00)
[2017-09-25] MEDS ORDERED: DEXTROSE 50% IN WATER 50 ML VIAL(D50) IV PUSH PRN (17:00)
[2017-09-25] MEDS ORDERED: GLUCAGON 1 MG/ML VIAL OTHER PRN (17:30)
[2017-09-25] MEDS ORDERED: ACETAMINOPHEN 325 MG TAB PO PRN (18:00)
[2017-09-25] MEDS ORDERED: NALOXONE HCL 0.4 MG/ML AMP IV PUSH PRN (18:00)
[2017-09-25] MEDS ORDERED: metFORMIN HCL 500 MG TAB PO SCH (18:00)
[2017-09-25] MEDS ORDERED: guaiFENesin/CODEINE SYRUP 200 MG/20 MG/10 ML CUP PO PRN (18:00)
[2017-09-25] MEDS: INSULIN ASPART SUPPLEMENTAL SCALE SQ SCH ×2 (18:13→19:29)
[2017-09-25] MEDS: methylPREDNISolone SOD SUCC 125 MG/2 ML VIAL IV PUSH SCH (18:13)
[2017-09-25] MEDS: SODIUM CHLOR 0.45% 1000 ML INJ 1,000 ML IV SCH (18:15)
--- NOTE | 2017-09-25 18:46 | MH ---
cc: CHOLO GUILLEN M.D. DATE OF ADMISSION 09/25/2017 ADMISSION DIAGNOSIS COPD exacerbation. HISTORY OF PRESENT ILLNESS Mr. Moreira is a very pleasant gentleman with a history of COPD, oxygen dependent on chronic steroids who presented to the emergency room with increasing shortness of breath. According to the patient and his , he had actually been doing relatively well for him until approximately Friday when he started becoming more short of breath, congested, nasal congestion and sore throat. He did say at one point he did feel kind of feverish. His has also been battling the same illness. They tried multiple jegl-vym-kwlsyng medications, TheraFlu, Sulfated among others. He increased his Prednisone on his own to 20 mg daily. He also had some Levaquin left over from a prior admission. He started taking that and he was using his nebulizers much more frequently. However, his symptoms did not improve and finally today he came to the emergency room to be evaluated. There he was found to have significantly increased work of breathing and was placed on BiPap by the ER doctor and he says between that and the IV Solu-Medrol his brain and his breathing treatments his symptoms have improved. He is able to speak to me much more comfortably today. He tells me he does have the COPD and it has actually it sounds gradually progressing he says since his admission this summer. He is not able to be as active as he was before without getting more short of breath and is having to use his oxygen much more frequently. He does have sleep apnea as well and uses his C-PAP at night. His breathing was so bad this morning that he was actually trying to use his C-PAP to help himself receive more oxygen. He denies any fevers, but he says that at the beginning of his illness he did feel feverish. He can give me a temperature. PAST MEDICAL HISTORY 1. Diabetes, 2. Hyperlipidemia, 3. Obstructive sleep apnea 4. Paroxysmal atrial fibrillation. 5. He has a [employer] Giorgi mechanical valve as well. PAST SURGICAL HISTORY Significant for the aortic valve replacement. ALLERGIES He states that he has been told he is allergic to PENICILLIN since a child, but he is unable to give me the exact allergic reaction. MEDICATIONS 1. Atorvastatin 20 mg daily. 2. Glimepiride 2 mg daily. 3. Warfarin 7.5 mg alternating with 5 mg. 4. Prednisone 5 mg daily 5. Singulair 10 mg once a day. 6. Metformin 1000 mg twice a day. 7. At baseline he uses his nebulizer two to three times a day. SOCIAL HISTORY He has smoked a pack a day for approximately 35 years. He has been trying to stop smoking. He has actually tried to use Chantix as well, but he had side effects from that. He does tell me he has been able to stop smoking for the last 6 weeks on his own. He rarely consumes alcohol. He is . His is in the room with him. He is a retired diesel fitter mechanic. He had to stop working once he had his valve replacement. REVIEW OF SYSTEMS See HPI. He denies any chest pain or palpitations. He denies any abdominal pain or change in his bowel movements, decreased urination. He denies any swelling in his extremities. He does have occasional numbness and tingling. PHYSICAL EXAMINATION VITAL SIGNS: Temperature is 98.1, pulse is 92, respirations 21, blood pressure is 167/89. His pulse ox is 96%. He is now on 2 liters nasal cannula sitting upright in the hospital bed. He is speaking in full sentences. HEENT: He is normocephalic Atraumatic. EOM intact. His oral mucosa is a little bit dry. His throat is a little bit hyperemic but I see no exudates or plaques. NECK: Supple. He has a short thick neck. LUNGS: He has diffuse wheezing throughout but I really hear no rhonchi or crackles. HEART: Slightly tachycardiac but it does sound regular. I can hear no murmurs. ABDOMEN: Abdomen is globose. He has good bowel sounds in all four quadrants. No rebound or guarding. EXTREMITIES: No edema LABORATORY DATA Done when he came in showed a white count of 10.3, hemoglobin of 16.2, hematocrit of 48.4, platelet count of 213, neutrophils were 76.3. Blood gas when he was on BiPap showed pH of 7.34 with a pCO2 of 40, pO2 was 136, bicarb was 21, INR was 4.3. Sodium was 139, potassium was 4.3, BUN was 17, creatinine was one, GFR was 77 with a random glucose of 152, lactic acid was done 2.7. Troponin was less than 0.02. BNP was 19. IMAGING STUDIES Chest x-ray showing discoid atelectasis within the right lung base. ASSESSMENT/PLAN A 57 year old gentleman with COPD oxygen dependent presenting with worsening shortness of breath requiring BiPap in the emergency room. At this point, he has been admitted. He has had a dose of Solu-Medrol, some breathing treatments and is actually down to nasal cannula. He tells me he feels much better and looks like he is doing much better. We will continue to treat him for COPD exacerbation. We will continue on his IV steroids, Solu-Medrol, DuoNebs q. 4 at least for tonight. Blood cultures are pending. I will place him on some azithromycin at this point even though my inclination is that this is more than likely a viral illness exacerbating his COPD. For his diabetes, we will continue his Metformin and his Glimepiride with the steroids and anticipate increase in his sugars. We will cover with sliding scale insulin and continue with a diabetic diet. For his hyperlipidemia, continue his atorvastatin. For his coagulopathy, he is on Coumadin. For his mechanical valve, he is supratherapeutic. It might be more than likely that multiple [id number]-[id number] medications he was taking prior to coming into the hospital. Right now we will simply hold his Coumadin and monitor his INRs. For his sleep apnea, his will bring in his C-PAP machine depending on how he does and is able to use that. Further recommendations as the case develops. MD JATIN Resendez/ /5:58 PM /6:12 PM
[2017-09-25] MEDS: ATORVASTATIN 20 MG TAB PO SCH (19:22)
[2017-09-25] MEDS: SODIUM CHLORIDE 0.9% FLUSH 10 ML FLUSH IV FLUSH SCH (19:23)
[2017-09-25] MEDS: metFORMIN HCL 500 MG TAB PO SCH (19:23)
[2017-09-25] MEDS ORDERED: RESP: ALBUTEROL 2.5 MG/IPRATROPIUM 0.5 MG NEB (SCH) INH (20:00)
[2017-09-25] MEDS: RESP: ALBUTEROL 2.5 MG/3 ML NEB (PRN) INH (21:52)
[2017-09-26] VITALS (19 sets, daily range): BP systolic 124–169; BP diastolic 65–99; PULSE 71–106; RESP 19–39; TEMP 97.4–98.5; O2SAT 87–97
[2017-09-26] MEDS: methylPREDNISolone SOD SUCC 125 MG/2 ML VIAL IV PUSH SCH ×2 (00:17→05:33)
[2017-09-26] MEDS: RESP: ALBUTEROL 2.5 MG/3 ML NEB (PRN) INH ×2 (02:06→21:56)
[2017-09-26 04:35] LABS: AUTOMATED NEUTROPHIL # 5.4 TH/MM3 (1.8-7.7); BASOPHIL % 0.2 % (0.0-2.0); EOSINOPHIL % 0.1 % (0.0-4.0); HEMATOCRIT 43.8 % (39.0-51.0); HEMO FLAGS DIFF FINAL; LYMPH % 8.1 % (9.0-44.0); LYMPHOCYTE # 0.5 TH/MM3 (1.0-4.8); MEAN CELL VOLUME 85.2 FL (80.0-100.0); MEAN CORPUSCULAR HEMOGLOBIN 27.8 PG (27.0-34.0); MEAN CORPUSCULAR HGB CONC 32.6 % (32.0-36.0); MONO % 1.5 % (0.0-8.0); NEUT % 90.1 % (16.0-70.0); PLATELET COUNT 195 TH/MM3 (150-450); RED BLOOD COUNT 5.14 MIL/MM3 (4.50-5.90); RED CELL DISTRIBUTION WIDTH 13.2 % (11.6-17.2)
[2017-09-26 04:43] LABS: INTERNATIONAL NORMALIZED RATIO 5.4 RATIO; PROTHROMBIN TIME - PATIENT 54.2 SEC (9.8-11.6)
[2017-09-26] MEDS: RESP: ALBUTEROL 2.5 MG/IPRATROPIUM 0.5 MG NEB (SCH) INH ×4 (07:36→19:17)
[2017-09-26] MEDS: MONTELUKAST SODIUM 10 MG TAB PO SCH (08:48)
[2017-09-26] MEDS: metFORMIN HCL 500 MG TAB PO SCH ×2 (08:49→17:36)
[2017-09-26] MEDS: AZITHROMYCIN 250 MG TAB PO SCH (08:49)
[2017-09-26] MEDS: ATENOLOL 25 MG TAB PO SCH (08:49)
[2017-09-26] MEDS: INSULIN ASPART SUPPLEMENTAL SCALE SQ SCH ×4 (08:50→20:38)
[2017-09-26] MEDS: SODIUM CHLOR 0.45% 1000 ML INJ 1,000 ML IV SCH ×2 (08:54→20:19)
[2017-09-26] MEDS: SODIUM CHLORIDE 0.9% FLUSH 10 ML FLUSH IV FLUSH SCH ×2 (08:57→20:20)
[2017-09-26] MEDS ORDERED: GLIMEPIRIDE 2 MG TAB PO SCH (09:00)
[2017-09-26] MEDS ORDERED: INFLUENZA VIRUS VACCINE (QUADRIVALENT) 0.5 ML SYR IM ONE (10:00)
--- NOTE | 2017-09-26 10:43 | HHI.PR ---
Subjective Remarks Got up to urinate last night and become acutely sob. was placed back on bipap. States since the summer has been having more sob with exertion, tries to not use his oxygen but failed walk test for Dr Chavez in Jun.Nasal congestion and cough are better. Objective Vitals Vital Signs Date Time Temp Pulse Resp B/P (MAP) Pulse Ox O2 Delivery O2 Flow Rate FiO2 09/26/17 09:00 102 24 161/81 (107) 92 09/26/17 08:49 98.0 106 25 169/99 (122) 92 09/26/17 08:00 96 09/26/17 07:38 92 Nasal Cannula 2.00 09/26/17 06:00 76 09/26/17 05:00 76 09/26/17 05:00 97.8 76 21 155/82 (106) 94 09/26/17 04:00 94 09/26/17 03:00 94 09/26/17 02:05 95 40 09/26/17 02:00 100 09/26/17 01:00 97.4 86 23 149/81 (103) 96 09/26/17 01:00 86 09/26/17 00:00 92 09/25/17 23:30 96 40 09/25/17 22:00 100 09/25/17 21:05 96 40 09/25/17 20:00 97.8 92 29 165/92 (116) 94 09/25/17 20:00 92 09/25/17 20:00 95 Nasal Cannula 2.00 09/25/17 18:01 97 Nasal Cannula 2.00 09/25/17 17:03 98.1 94 21 167/89 (115) 96 09/25/17 16:47 97 2.00 09/25/17 16:35 93 20 141/76 (97) 98 Nasal Cannula 2.00 09/25/17 15:30 100 25 151/84 (106) 98 BiPAP 40 09/25/17 14:04 98 BiPAP 40 09/25/17 14:04 116 26 153/98 (116) 98 BiPAP 09/25/17 13:20 96 40 09/25/17 13:01 98.3 121 23 148/83 (104) 97 Nasal Cannula 2.00 09/25/17 12:59 120 24 149/92 (111) 97 Nasal Cannula 2.00 09/25/17 12:28 96 Nasal Cannula 2.00 09/25/17 12:07 98.5 114 20 156/87 (110) 96 09/26/17 09/26/17 09/27/17 14:59 22:59 06:59 Intake Total 400 ml Output Total 500 ml Balance -100 ml Intake Oral 400 ml Output Urine Total 500 ml Result Diagram: 09/26/17 0418 09/25/17 1227 Imaging Last Impressions Chest X-Ray 09/25/17 1219 Signed Impressions: Service Date/Time: September 12:30 - CONCLUSION: Discoid atelectasis within the right lung base. Denver Oviedo MD Objective Remarks Sitting up at side of bed lungs with diffuse wheezing throughout, no rhonchi or rales heart slightly tachycardic abdomen globose ext no edema A/P Problem List: (1) COPD with acute exacerbation ICD Codes: J44.1 - Chronic obstructive pulmonary disease with (acute) exacerbation Status: Acute Plan: slight improvement from yesterday, cont duonebs, solumedrol, bipap at night secondary to acute respiratory distress with exertion, better this am will try to decrease solumedrol slightly, bipap as needed (2) DM (diabetes mellitus) ICD Codes: E11.9 - Type 2 diabetes mellitus without complications Status: Chronic Plan: cont diabetic diet, metformin and glimeperide, cover with ssi while on solumedrol (3) Warfarin-induced coagulopathy ICD Codes: D68.9 - Coagulation defect, unspecified; T45.515A - Adverse effect of anticoagulants, initial encounter Status: Acute Plan: cont to hold coumadin, has mechanical valve, follow inr, no evidence of bleeding (4) Hyperlipidemia ICD Codes: E78.5 - Hyperlipidemia, unspecified Status: Chronic Plan: cont atorvastatin (5) Acute on chronic respiratory failure ICD Codes: J96.20 - Acute and chronic respiratory failure, unspecified whether with hypoxia or hypercapnia Status: Acute Plan: he is normally having to use oxygen via nasal cannula at home on a more frequent basis (he tries to avoid it) has needed increased fio2 and bipap intermittently during hospitalization. He will need to be encouraged to use his oxygen 24/7 on discharge Problem Qualifiers (1) DM (diabetes mellitus): (2) Acute on chronic respiratory failure: Qualified Codes: J96.20 - Acute and chronic respiratory failure, unspecified whether with hypoxia or hypercapnia Lakisha Holloway MD Sep 26, 2017 10:43
[2017-09-26 10:58] LABS: POTASSIUM 4.3 MEQ/L (3.5-5.1)
[2017-09-26 11:01] LABS: BICARBONATE 25.6 MEQ/L (21.0-32.0)
[2017-09-26] MEDS: methylPREDNISolone SOD SUCC 40 MG/1 ML VIAL IV PUSH SCH ×2 (12:30→17:37)
[2017-09-26] MEDS: ATORVASTATIN 20 MG TAB PO SCH (20:19)
[2017-09-27] VITALS: PULSE 82
[2017-09-27] MEDS: methylPREDNISolone SOD SUCC 40 MG/1 ML VIAL IV PUSH SCH ×2 (00:20→05:59)
[2017-09-27 03:37] VITALS: BP 97/58; PULSE 86; RESP 18; TEMP 97.8; O2SAT 94
[2017-09-27 04:00] VITALS: PULSE 76
[2017-09-27 06:30] LABS: INTERNATIONAL NORMALIZED RATIO 4.9 RATIO; PROTHROMBIN TIME - PATIENT 49.5 SEC (9.8-11.6)
[2017-09-27] MEDS: RESP: ALBUTEROL 2.5 MG/IPRATROPIUM 0.5 MG NEB (SCH) INH ×2 (07:09→11:17)
[2017-09-27 07:10] VITALS: O2SAT 96
--- NOTE | 2017-09-27 07:10 | HHI.PR ---
Subjective Remarks He states his breathing is much better and that he feels like he is pretty much back to his baseline. He has oxygen and home and an oximeter to monitor his oxygenation. He states he had a good night and used his CPAP and is just on 2 liters of oxyen by nasal cannula. He would like to go home today. Objective Vitals Vital Signs Date Time Temp Pulse Resp B/P (MAP) Pulse Ox O2 Delivery O2 Flow Rate FiO2 09/27/17 04:00 76 09/27/17 03:37 97.8 86 18 97/58 (71) 94 09/27/17 00:00 82 09/26/17 23:37 98.3 86 20 139/65 (89) 95 09/26/17 22:05 93 2.00 09/26/17 20:00 105 09/26/17 20:00 98.5 92 33 147/69 (95) 95 09/26/17 20:00 97 Nasal Cannula 2.00 09/26/17 19:15 95 Nasal Cannula 2.00 09/26/17 15:00 71 09/26/17 12:50 97.9 76 23 136/78 (97) 97 09/26/17 12:50 74 24 136/78 (97) 96 09/26/17 11:00 100 39 87 09/26/17 11:00 100 39 148/84 (105) 87 09/26/17 09:00 102 24 161/81 (107) 92 09/26/17 08:49 98.0 106 25 169/99 (122) 92 09/26/17 08:00 96 09/26/17 07:38 92 Nasal Cannula 2.00 Result Diagram: 09/26/17 0418 09/26/17 1030 Other Results Laboratory Tests Test 09/25/17 12:27 09/25/17 14:19 09/25/17 14:40 09/26/17 04:18 White Blood Count 10.3 TH/MM3 6.0 TH/MM3 Red Blood Count 5.75 MIL/MM3 5.14 MIL/MM3 Hemoglobin 16.2 GM/DL 14.3 GM/DL Hematocrit 48.4 % 43.8 % Mean Corpuscular Volume 84.2 FL 85.2 FL Mean Corpuscular Hemoglobin 28.2 PG 27.8 PG Mean Corpuscular Hemoglobin Concent 33.5 % 32.6 % Red Cell Distribution Width 13.6 % 13.2 % Platelet Count 213 TH/MM3 195 TH/MM3 Mean Platelet Volume 8.8 FL 8.4 FL Neutrophils (%) (Auto) 76.3 % 90.1 % Lymphocytes (%) (Auto) 12.9 % 8.1 % Monocytes (%) (Auto) 7.1 % 1.5 % Eosinophils (%) (Auto) 1.1 % 0.1 % Basophils (%) (Auto) 2.6 % 0.2 % Neutrophils # (Auto) 7.9 TH/MM3 5.4 TH/MM3 Lymphocytes # (Auto) 1.3 TH/MM3 0.5 TH/MM3 Monocytes # (Auto) 0.7 TH/MM3 0.1 TH/MM3 Eosinophils # (Auto) 0.1 TH/MM3 0.0 TH/MM3 Basophils # (Auto) 0.3 TH/MM3 0.0 TH/MM3 CBC Comment DIFF FINAL DIFF FINAL Differential Comment Prothrombin Time 42.9 SEC 54.2 SEC Prothromb Time International Ratio 4.3 RATIO 5.4 RATIO Activated Partial Thromboplast Time 43.4 SEC Blood Urea Nitrogen 17 MG/DL Creatinine 1.00 MG/DL Random Glucose 152 MG/DL Calcium Level 9.1 MG/DL Magnesium Level 2.1 MG/DL Sodium Level 139 MEQ/L Potassium Level 4.3 MEQ/L Chloride Level 104 MEQ/L Carbon Dioxide Level 24.6 MEQ/L Anion Gap 10 MEQ/L Estimat Glomerular Filtration Rate 77 ML/MIN Lactic Acid Level 2.7 mmol/L 3.0 mmol/L Troponin I LESS THAN 0.02 NG/ML B-Type Natriuretic Peptide 19 PG/ML Blood Gas Puncture Site RT RADIAL Blood Gas Patient Temperature 98.6 Blood Gas HCO3 21 mmol/L Blood Gas Base Excess -3.5 mmol/L Blood Gas Oxygen Saturation 96 % Arterial Blood pH 7.34 Arterial Blood Partial Pressure CO2 40 mmHG Arterial Blood Partial Pressure O2 136 mmHG Arterial Blood Oxygen Content 21.4 Vol % Arterial Blood Carboxyhemoglobin 1.8 % Arterial Blood Methemoglobin 1.1 % Blood Gas Hemoglobin 15.8 G/DL Oxygen Delivery Device BIPAP Blood Gas Ventilator Setting IPAP 10/EPAP 5 Blood Gas Inspired Oxygen 40 % Test 09/26/17 10:30 09/27/17 06:00 Blood Urea Nitrogen 18 MG/DL Creatinine 1.10 MG/DL Random Glucose 267 MG/DL Calcium Level 9.4 MG/DL Sodium Level 137 MEQ/L Potassium Level 4.3 MEQ/L Chloride Level 100 MEQ/L Carbon Dioxide Level 25.6 MEQ/L Anion Gap 11 MEQ/L Estimat Glomerular Filtration Rate 69 ML/MIN Prothrombin Time 49.5 SEC Prothromb Time International Ratio 4.9 RATIO Imaging Last Impressions Chest X-Ray 09/25/17 1219 Signed Impressions: Service Date/Time: September 12:30 - CONCLUSION: Discoid atelectasis within the right lung base. Denver Oviedo MD Objective Remarks Exam: Pleasant white male sitting on the side of his bed. In no distress. Able to communicate without any shortness of breath. HEENT: pupils equal, no scleral icterus, mouth negative Heart: RRR Lungs: Just occasional minimal wheezing (patient states this is normal for him Abdomen: soft, nontender, Extremities: No edema Neuro: No focal deficits, alert, oriented A/P Assessment and Plan Assessment: --COPD with acute exacerbation--clinically much better (on chronic low dose Prednisone at home --Acute on chronic respiratory failure--much improved. He uses oxygen at home intermittently but is instructed to use regularly for now --Warfarin coagulopathy: His INR is still 4.9. Likely his antibiotic use caused his INR to go up. His Warfarin is still on hold --[facility] Giorgi's mechanical aortic valve replacement on Warfarin --Type 2 diabetes mellitus--blood sugars up from IV steroids --Hyperlipidemia --Obstructive sleep apnea on CPAP Plan: I have stopped his IV Solu-Medrol and changed him to oral Prednisone 20mg daily. I will discharge him today. His Warfarin will remain on hold today and tomorrow and he is instructed to do a stat PT/INR on Friday morning. I have increased his Glimepiride 2mg daily to 4mg daily and he will continue his Metformin 1000mg twice a day. He will monitor his Accucheck blood sugars at home for a few days. I will continue him on Prednisone 20mg daily x 5 days then 10mg daily until he sees his PCP and operating systems specialist. He will continue on DuoNeb nebulizer treatments. He will followup with his PCP earlier next week and with his operating systems specialist (Dr Chavez) next week also He will continue on Zithromax 250mg daily x 4 days Chavez Metzger MD Sep 27, 2017 07:10
[2017-09-27] MEDS ORDERED: AZIT250T3 PO (07:31)
[2017-09-27] MEDS ORDERED: AMAR2TAB PO (07:31)
[2017-09-27] MEDS ORDERED: PRED10 PO (07:31)
[2017-09-27] MEDS ORDERED: WARF-23 PO (07:31)
[2017-09-27 08:00] VITALS: BP 144/80; PULSE 74; PULSE 82; RESP 18; TEMP 97.8; O2SAT 95
[2017-09-27] MEDS ORDERED: GLIMEPIRIDE 2 MG TAB PO SCH (08:00)
[2017-09-27] MEDS: metFORMIN HCL 500 MG TAB PO SCH (08:07)
[2017-09-27] MEDS: AZITHROMYCIN 250 MG TAB PO SCH (08:07)
[2017-09-27] MEDS: INSULIN ASPART SUPPLEMENTAL SCALE SQ SCH (08:07)
[2017-09-27] MEDS: ATENOLOL 25 MG TAB PO SCH (08:07)
[2017-09-27] MEDS: MONTELUKAST SODIUM 10 MG TAB PO SCH (08:08)
[2017-09-27] MEDS: SODIUM CHLORIDE 0.9% FLUSH 10 ML FLUSH IV FLUSH SCH (08:08)
[2017-09-27] MEDS ORDERED: predniSONE 20 MG TAB PO SCH (09:00)
--- NOTE | 2017-09-27 12:24 | EKG ---
Date Performed: 09/25/2017 Time Performed: 12:38:57 PTAGE: 57 years EKG: SINUS TACHYCARDIA RIGHT BUNDLE BRANCH BLOCK LEFT ANTERIOR FASCICULAR BLOCK ABNORMAL ECG PREVIOUS TRACING : 05/17/2017 22.24 DOCTOR: Molina Mims Interpretating Date/Time 09/27/2017 12:23:27
== END 2017-09-27 12:02 | disposition home or self-care (01) | DRG 190 ==
LOC: PHED 12:02 → PHEDA 14:17 → PHICU 16:42
PROVIDERS: ADMIT Legal Medicine; ATTEND Legal Medicine
PROC: 5A09357 Assistance with Respiratory Ventilation, Less than 24 Consecutive Hours, Continuous Positive Airway Pressure (ICD-10-PCS; principal; 2017-09-25)
DX: J44.1 Chronic obstructive pulmonary disease with (acute) exacerbation (principal); J96.20 Acute and chronic respiratory failure, unspecified whether with hypoxia or hypercapnia; Z99.81 Dependence on supplemental oxygen; J98.11 Atelectasis; G47.33 Obstructive sleep apnea (adult) (pediatric); E78.5 Hyperlipidemia, unspecified; E11.9 Type 2 diabetes mellitus without complications; F17.210 Nicotine dependence, cigarettes, uncomplicated; I48.0 Paroxysmal atrial fibrillation; R79.1 Abnormal coagulation profile; T45.515A Adverse effect of anticoagulants, initial encounter; Z23 Encounter for immunization; Z79.52 Long term (current) use of systemic steroids; Z79.84 Long term (current) use of oral hypoglycemic drugs; Z79.01 Long term (current) use of anticoagulants; Z95.2 Presence of prosthetic heart valve; Z87.442 Personal history of urinary calculi
CPT/HCPCS: 36600; 71010; 80048; 82805; 82948; 83605; 83735; 83880; 84484; 85025; 85610; 85730; 87040; 87186; 87205; 87804; 90471; 90686; 93005; 94002; 94003; 94640; 94664; 96361; 96374; G0008; J1815; J2920; J2930; J7030; J7512; J7613; Q2038

== ENCOUNTER 2018-05-28 22:03 | Observation (INO) ==
--- NOTE | 2018-05-28 22:37 | ED ---
HPI General Chief Complaint: Chest Pain Stated Complaint: chest pain Time Seen by Provider: 05/28/18 22:28 Source: patient and family Mode of arrival: ambulatory History of Present Illness HPI narrative: 58-year-old male presents with chest pain that started approximately an hour ago. He denies any associated symptoms. He states he follows with Dr. Ramos and has aortic valve replacement and takes Coumadin as well as atrial fibrillation. He states his last heart cath was about a year or so ago and he had 40% blockage of one vessel in 20% in the other. MD complaint: chest pain Complete Quality Measures for STEMI Alert Patients STEMI Alert: No Onset (ago): hour(s) Duration: constant Pain location: left chest Severity: moderate Quality: heaviness Pain radiation: LUE Relieving factors: nothing Exacerbating factors: nothing Related Data Home Medications Medication Instructions Recorded Confirmed albuterol sulfate 1.25 mg INHALATION QID PRN 05/28/18 05/28/18 albuterol sulfate [Ventolin HFA] 2 puff INHALATION Q4-6H PRN 05/28/18 05/28/18 atenolol 25 mg PO DAILY 05/28/18 05/28/18 atorvastatin 20 mg PO DAILY 05/28/18 05/28/18 gabapentin 300 mg PO DAILY 05/28/18 05/28/18 glimepiride 4 mg PO QAM 05/28/18 05/28/18 losartan 25 mg PO DAILY 05/28/18 05/28/18 metformin 1,000 mg PO BID 05/28/18 05/28/18 montelukast 10 mg PO QPM 05/28/18 05/28/18 pioglitazone 15 mg PO DAILY 05/28/18 05/28/18 prednisone 5 mg PO DAILY 05/28/18 05/28/18 umeclidinium-vilanterol [Anoro 1 inh INHALATION Q24H 05/28/18 05/28/18 Ellipta] warfarin 5 mg PO Q OTHER DAY 05/28/18 05/28/18 warfarin 7.5 mg PO Q OTHER DAY 05/28/18 05/28/18 Allergies Allergy/AdvReac Type Severity Reaction Status Date / Time penicillin G Allergy Unknown UNKNOWN Verified 05/28/18 22:35 Review of Systems ROS: all other systems reviewed are negative [facility] Medical History Medical History History of COPD (Acute) History of atrial fibrillation (Acute) History of diabetes mellitus, type II (Acute) History of emphysema (Acute) History of neuropathy (Acute) History of sleep apnea (Acute) Surgical History Surgical History History of aortic valve replacement (Acute) Social History Social History Substance History: No History of Abuse Second Hand Smoke Exposure: Yes Smoking Status: Current every day smoker Tobacco Type: Cigarettes How Often Do You Have a Drink Containing Alcohol: Monthly or less Immunization History Tetanus Immunization: <5 Years Hx Influenza Vaccine This Season: Yes Exam Narrative Exam Narrative: GENERAL: In no apparent distress SKIN: Focused skin assessment warm/dry. HEAD: Atraumatic. Normocephalic. EYES: Pupils equal and round. No scleral icterus. No injection or drainage. ENT: No nasal bleeding or discharge. Mucous membranes pink and moist. NECK: Trachea midline. No JVD. CARDIOVASCULAR: Regular rate and rhythm. RESPIRATORY: No accessory muscle use. Clear to auscultation. Breath sounds equal bilaterally. GASTROINTESTINAL: Abdomen soft, non-tender, nondistended. MUSCULOSKELETAL: No obvious deformities. No clubbing. No cyanosis. No edema. NEUROLOGICAL: Awake and alert. No obvious cranial nerve deficits. Motor grossly within normal limits. Normal speech. PSYCHIATRIC: Appropriate mood and affect; insight and judgment normal. Course Hospital Course: patient updated, given nitro and aspirin and agrees to admit Consultations Consultation #1: yovani with dr koch agrees to admit Initial Documented Vital Signs Temperature 97.9 F 05/28/18 22:11 Pulse Rate 78 05/28/18 22:11 Respiratory Rate 20 05/28/18 22:11 Blood Pressure 136/82 05/28/18 22:11 Pulse Oximetry 93 L 05/28/18 22:11 Last Documented Vital Signs Temperature 97.9 F 05/28/18 22:11 Pulse Rate 71 05/28/18 23:20 Respiratory Rate 20 05/28/18 23:20 Blood Pressure 133/68 05/28/18 23:20 Pulse Oximetry 96 05/28/18 23:20 Medical Decision Making MDM Narrative Medical decision making narrative: Will check blood work, imaging, EKG and reevaluate. Patient does not feel like he is in a COPD exacerbation and currently is 92% on room air and uses oxygen intermittently. Currently clear to auscultation bilaterally. Will need further cardiac evaluation. Medical Screen Exam Complete: Yes Emergency Medical Condition: Yes Differential Diagnosis Differential Diagnosis: Anemia, renal failure, musculoskeletal, COPD, cardiac Lab Data Lab results reviewed: Yes I reviewed the patient's lab results. Result diagrams: 05/28/18 22:30 05/28/18 22:30 Lab Results 05/28/18 05/28/18 05/28/18 Range/Units 22:30 22:30 22:30 CBC w Diff Auto diff final WBC 10.2 (4.0-11.0) th/mm3 RBC 5.31 (4.50-5.90) mil/mm3 Hgb 15.5 (13.0-17.0) gm/dL Hct 46.1 (39.0-51.0) % MCV 86.9 (80.0-100.0) fL MCH 29.1 (27.0-34.0) pg MCHC 33.6 (32.0-36.0) % RDW 14.2 (11.6-17.2) % Plt Count 241 (150-450) th/mm3 MPV 9.4 (7.0-11.0) fL Neut % (Auto) 69.5 (16.0-70.0) % Lymph % (Auto) 21.5 (9.0-44.0) % [place] % (Auto) 5.1 (0.0-8.0) % Eos % (Auto) 3.3 (0.0-4.0) % Baso % (Auto) 0.6 (0.0-2.0) % Neut # (Auto) 7.1 (1.8-7.7) th/mm3 Lymph # (Auto) 2.2 (1.0-4.8) th/mm3 [place] # (Auto) 0.5 (0.0-0.9) th/mm3 Eos # (Auto) 0.3 (0.0-0.4) th/mm3 Baso # (Auto) 0.1 (0.0-0.2) th/mm3 WBC Differential . Differential Comment . PT 18.4 H (9.8-11.6) sec INR 1.8 Ratio APTT 32.9 H (24.3-30.1) sec Sodium 139 (136-145) meq/L Potassium 4.8 (3.5-5.1) meq/L Chloride 108 H (98-107) meq/L Carbon Dioxide 23.7 (21.0-32.0) meq/L Anion Gap 7 (5-15) meq/L BUN 17 (7-18) mg/dL Creatinine 1.00 (0.60-1.30) mg/dL Estimated GFR 77 L (>89) mL/min Random Glucose 129 H (74-106) mg/dL Calcium 8.9 (8.5-10.1) mg/dL Magnesium 1.9 (1.5-2.5) mg/dL Total Bilirubin 0.4 (0.2-1.0) mg/dL AST 41 H (15-37) U/L ALT 31 (12-78) U/L Alkaline Phosphatase 62 (45-117) U/L Total Creatine Kinase 123 (39-308) U/L CK-MB (CK-2) 0.9 (0.5-3.6) ng/mL Troponin I Less than 0.02 L (0.02-0.05) ng/mL Total Protein 7.5 (6.4-8.2) g/dL Albumin 3.9 (3.4-5.0) g/dL Imaging Data Attestation: I personally reviewed and interpreted this imaging study as follows : Radiologist's impression: Chest X-Ray 05/28/18 22:28 CONCLUSION: Linear scarring or atelectasis at the lung bases. There is also some chronic pleural change at the left lateral base. Discharge Plan Discharge Disposition Patient Disposition: 30 Still Patient Discharge Details Diagnosis: Chest pain, Subtherapeutic international normalized ratio (INR) Physicians Team ED Provider: Fatuma Govea Primary Care Provider: Ozzie Campo Attending Provider: Therese Koch Status ED Status: Admitted Observation Patient
[2018-05-28 22:50] LABS: Baso # (Auto) 0.1 th/mm3 (0.0-0.2); Baso % (Auto) 0.6 % (0.0-2.0); Eos # (Auto) 0.3 th/mm3 (0.0-0.4); Eos % (Auto) 3.3 % (0.0-4.0); Hematocrit 46.1 % (39.0-51.0); Hemoglobin 15.5 gm/dL (13.0-17.0); Lymph # (Auto) 2.2 th/mm3 (1.0-4.8); Lymph % (Auto) 21.5 % (9.0-44.0); Mean Corpuscular HGB Conc 33.6 % (32.0-36.0); Mean Corpuscular Hemoglobin 29.1 pg (27.0-34.0); Mean Corpuscular Volume 86.9 fL (80.0-100.0); Mean Platelet Volume 9.4 fL (7.0-11.0); Mono # (Auto) 0.5 th/mm3 (0.0-0.9); Mono % (Auto) 5.1 % (0.0-8.0); Neut # (Auto) 7.1 th/mm3 (1.8-7.7); Neut % (Auto) 69.5 % (16.0-70.0); Platelet Count 241 th/mm3 (150-450); Red Blood Count 5.31 mil/mm3 (4.50-5.90); Red Cell Distribution Width 14.2 % (11.6-17.2); White Blood Count 10.2 th/mm3 (4.0-11.0)
[2018-05-28 23:06] LABS: Chloride 108 meq/L (98-107); Potassium 4.8 meq/L (3.5-5.1); Sodium 139 meq/L (136-145)
--- NOTE | 2018-05-28 23:09 | XR ---
EXAM DATE: 05/28/2018 11:00 PM EDT AGE/SEX: 58 years / Male INDICATIONS: Left chest pain. CLINICAL DATA: This is the patient's initial encounter. Patient reports that signs and symptoms have been present for 1 day and indicates a pain score of 5/10. MEDICAL/SURGICAL HISTORY: Diabetes. . Aortic valve replacement. COMPARISON: [facility], CHEST SINGLE AP, 09/25/2017. . FINDINGS: The patient is status post sternotomy. The heart size is normal. There is a prosthetic aortic valve p resent. There is linear density at the bases bilaterally likely related to atelectasis or scarring. T he lungs are otherwise clear. There is stable pleural disease at the left lateral base. CONCLUSION: Linear scarring or atelectasis at the lung bases. There is also some chronic pleural change at the le ft lateral base. Electronically signed by: Jean Bear MD 05/28/2018 11:08 PM EDT
[2018-05-28 23:11] LABS: Albumin 3.9 g/dL (3.4-5.0); Anion Gap 7 meq/L (5-15); Blood Urea Nitrogen 17 mg/dL (7-18); Calcium 8.9 mg/dL (8.5-10.1); Carbon Dioxide 23.7 meq/L (21.0-32.0); Glucose,Random 129 mg/dL (74-106); Magnesium 1.9 mg/dL (1.5-2.5)
[2018-05-28 23:14] LABS: Alanine Aminotransferase 31 U/L (12-78); Aspartate Aminotransferase 41 U/L (15-37); Glomerular Filtration Rate 77 mL/min (>89)
[2018-05-28 23:16] LABS: Total Protein 7.5 g/dL (6.4-8.2)
[2018-05-28 23:17] LABS: Alkaline Phosphatase 62 U/L (45-117); Creatine Kinase 123 U/L (39-308)
[2018-05-28 23:18] LABS: Activated Partial Thrombo Time 32.9 sec (24.3-30.1); INR 1.8 Ratio; Prothrombin Time 18.4 sec (9.8-11.6)
[2018-05-28] MEDS ORDERED: Aspirin 325 MG Tablet PO ONE (23:24)
[2018-05-28 23:30] LABS: Creatine Kinase MB 0.9 ng/mL (0.5-3.6)
[2018-05-28] MEDS ORDERED: Iohexol 350 MG/ML 100 ML Vial (for Cath Lab) IVCONTRAST ONE (23:38)
[2018-05-29] MEDS ORDERED: Morphine Inj 4 MG/ML Vial IV.PUSH ONE (01:55)
[2018-05-29 04:48] LABS: Baso % (Auto) 0.5 % (0.0-2.0); Eos # (Auto) 0.3 th/mm3 (0.0-0.4); Eos % (Auto) 3.8 % (0.0-4.0); Hemoglobin 14.4 gm/dL (13.0-17.0); Lymph # (Auto) 2.1 th/mm3 (1.0-4.8); Lymph % (Auto) 25.9 % (9.0-44.0); Mean Corpuscular HGB Conc 33.5 % (32.0-36.0); Mean Corpuscular Hemoglobin 29.3 pg (27.0-34.0); Mean Corpuscular Volume 87.4 fL (80.0-100.0); Mono # (Auto) 0.6 th/mm3 (0.0-0.9); Mono % (Auto) 6.9 % (0.0-8.0); Neut # (Auto) 5.1 th/mm3 (1.8-7.7); Neut % (Auto) 62.9 % (16.0-70.0); Platelet Count 193 th/mm3 (150-450); Red Blood Count 4.92 mil/mm3 (4.50-5.90); Red Cell Distribution Width 14.1 % (11.6-17.2); White Blood Count 8.1 th/mm3 (4.0-11.0)
[2018-05-29 04:58] LABS: Calcium 8.4 mg/dL (8.5-10.1)
[2018-05-29 04:59] LABS: Carbon Dioxide 28.3 meq/L (21.0-32.0)
[2018-05-29] MEDS ORDERED: Warfarin Consult Pharmacy OTHER ONE (08:29)
[2018-05-29] MEDS ORDERED: Warfarin Consult Pharmacy OTHER PRN (09:02)
[2018-05-29 10:40] LABS: Chol/HDL Ratio 4.84 Ratio; HDL Cholesterol 32.6 mg/dL (40.0-60.0)
[2018-05-29] MEDS ORDERED: Dextrose 50% in Water 50 ML Vial IV.PUSH PRN (11:06)
--- NOTE | 2018-05-29 11:08 | ECG ---
Date Performed: 05/29/2018 Time Performed: 03:41:13 PTAGE: 58 years EKG: Sinus rhythm RIGHT BUNDLE BRANCH BLOCK LEFT ANTERIOR FASCICULAR BLOCK POSSIBLE SEPTAL MYOCARDIAL INFARCTION ABNOR MAL ECG PREVIOUS TRACING : 05/28/2018 22.12 Since the previous tracing, no significant change noted DOCTOR: Geronimo Castañeda Interpretating Date/Time 05/29/2018 11:06:45
--- NOTE | 2018-05-29 11:08 | ECG ---
Date Performed: 05/28/2018 Time Performed: 22:12:08 PTAGE: 58 years EKG: Sinus rhythm RIGHT BUNDLE BRANCH BLOCK LEFT ANTERIOR FASCICULAR BLOCK SEPTAL MYOCARDIAL INFARCTION ABNORMAL ECG PREVIOUS TRACING : 09/25/2017 12.38 Since the previous tracing, no significant change noted DOCTOR: Geronimo Castañeda Interpretating Date/Time 05/29/2018 11:07:02
--- NOTE | 2018-05-29 11:28 | P.HP ---
History of Present Illness Service: [facility] hospitalist Primary Care Physician: Ozzie Campo Chief Complaint: chest pain started last night 9 pm History of Present Illness: 58-year-old male presents with chest pain that started approximately 9pm last night until 3 am.. Pain described as heavy and did radiate to left arm and neck and back. Denies any SOB,Nausea,diaphoresis or any other symptoms . Patient has COPD and uses nebulizer and prednisone and chronic oxygen at 2 liters.. He states he follows with Dr. Ramos and has aortic valve replacement and takes Coumadin as well as atrial fibrillation. He states his last heart cath was about a year or so ago and he had 40% blockage of one vessel in 20% in the other. - Diagnosis (1) Chest pain (2) COPD (chronic obstructive pulmonary disease) (3) Diabetes (4) Subtherapeutic international normalized ratio (INR) (5) History of aortic valve replacement Review of Systems Cardiovascular: Reports chest pain, Reports radiating jaw, neck or arm pain PMFSH - History History Provided By: Patient, Family Member - Medical History Medical History: Medical History (Last Reviewed 05/28/18 @ 22:36 by Fatuma Govea MD) History of COPD History of atrial fibrillation History of diabetes mellitus, type II History of emphysema History of neuropathy History of sleep apnea - Surgical History Surgical History: Surgical History (Last Reviewed 05/28/18 @ 22:36 by Fatuma Govea MD) History of aortic valve replacement (Acute) - Tobacco History Second Hand Smoke Exposure: Yes Tobacco Use In Past 30 Days: Yes Smoking Status: Current every day smoker Tobacco Type: Cigarettes - Alcohol History How Often Do You Have a Drink Containing Alcohol: Monthly or less - Substance Use History Substance History: No History of Abuse - Immunization History Tetanus Immunization: <5 Years Hx Influenza Vaccine This Season: Yes Medications and Allergies Active Medications: Active Medications Albuterol (Duoneb Neb (Prn)) 1 ampul NEB Q4HR NEB PRN PRN Reason: sob Last Admin: 05/29/18 07:24 Dose: 1 ampul Atenolol (Tenormin) 25 mg PO DAILY RONNY Atorvastatin Calcium (Lipitor) 20 mg PO DAILY RONNY Dextrose (D50w Vial) 50 ml IV.PUSH UNSCH PRN PRN Reason: PER HYPOGLYCEMIA PROTOCOL Gabapentin (Neurontin) 300 mg PO DAILY RONNY Glucagon (Glucagon Inj) 1 mg OTHER PRN PRN PRN Reason: for Hypoglycemia Protocol Insulin Aspart (Novolog Insulin Correction[facility] Sugar Inj) 0 unit SQ Q6HR RONNY; Protocol Losartan Potassium (Cozaar) 25 mg PO DAILY [facility] Ondansetron HCl (Zofran Inj) 4 mg IV.PUSH Q6H PRN PRN Reason: NAUSEA OR VOMITING Pharmacy Profile Note (Coumadin Consult Pharmacy) 1 each OTHER UNSCH PRN PRN Reason: SEE LABEL COMMENTS Sodium Chloride (Ns Flush) 2 ml IV.FLUSH UNSCH PRN PRN Reason: FLUSH AFTER USING IV ACCESS Warfarin Sodium (Coumadin) 5 mg PO Q2D RONNY Warfarin Sodium (Coumadin) 7.5 mg PO Q2D [facility] Allergies Allergy/AdvReac Type Severity Reaction Status Date / Time penicillin G Allergy Unknown UNKNOWN Verified 05/28/18 22:35 Home Medications Medication Instructions Recorded Confirmed Type albuterol sulfate 1.25 mg INHALATION QID PRN 05/28/18 05/28/18 History albuterol sulfate [Ventolin HFA] 2 puff INHALATION Q4-6H PRN 05/28/18 05/28/18 History atenolol 25 mg PO DAILY 05/28/18 05/28/18 History atorvastatin 20 mg PO DAILY 05/28/18 05/28/18 History gabapentin 300 mg PO DAILY 05/28/18 05/28/18 History glimepiride 4 mg PO QAM 05/28/18 05/28/18 History losartan 25 mg PO DAILY 05/28/18 05/28/18 History metformin 1,000 mg PO BID 05/28/18 05/28/18 History montelukast 10 mg PO QPM 05/28/18 05/28/18 History pioglitazone 15 mg PO DAILY 05/28/18 05/28/18 History prednisone 5 mg PO DAILY 05/28/18 05/28/18 History umeclidinium-vilanterol [Anoro 1 inh INHALATION Q24H 05/28/18 05/28/18 History Ellipta] warfarin 5 mg PO Q OTHER DAY 05/28/18 05/28/18 History warfarin 7.5 mg PO Q OTHER DAY 05/28/18 05/28/18 History Exam Vital signs: Vital Signs 05/28/18 22:11 05/28/18 22:28 05/28/18 23:20 Temperature 97.9 F Pulse Rate 78 72 71 Respiratory Rate 20 20 20 Blood Pressure 136/82 138/72 133/68 Pulse Oximetry 93 L 95 96 05/28/18 23:46 05/29/18 00:00 05/29/18 00:45 Temperature 96.8 F L Pulse Rate 68 69 67 Respiratory Rate 20 20 Blood Pressure 111/58 L 119/74 Pulse Oximetry 95 96 05/29/18 03:40 05/29/18 04:00 05/29/18 07:26 Temperature 96.2 F L Pulse Rate 55 L 69 Respiratory Rate 20 16 Blood Pressure 129/79 Pulse Oximetry 97 96 98 05/29/18 08:00 Temperature 97.4 F L Pulse Rate 61 Respiratory Rate 18 Blood Pressure 126/86 Pulse Oximetry 97 Intake & Output 05/28/18 05/29/18 05/29/18 18:59 06:59 18:59 Intake Total 0 / 0 Balance 0 / 0 Weight 93.9 kg Intake: Oral 0 / 0 Other: # Voids 2 Narrative: GENERAL: SKIN: Warm and dry. HEAD: Atraumatic. Normocephalic. EYES: Pupils equal and round. No scleral icterus. No injection or drainage. ENT: No nasal bleeding or discharge. Mucous membranes pink and moist. NECK: Trachea midline. No JVD. CARDIOVASCULAR: Regular rate and rhythm. RESPIRATORY: No accessory muscle use. Clear to auscultation. Breath sounds equal bilaterally. GASTROINTESTINAL: Abdomen soft, non-tender, nondistended. Hepatic and splenic margins not palpable. MUSCULOSKELETAL: Extremities without clubbing, cyanosis, or edema. No obvious deformities. NEUROLOGICAL: Awake and alert. No obvious cranial nerve deficits. Motor grossly within normal limits. Five out of 5 muscle strength in the arms and legs. Normal speech. PSYCHIATRIC: Appropriate mood and affect; insight and judgment normal. Results - Labs CBC & Chem 7: 05/29/18 04:25 05/29/18 04:25 Labs: Laboratory Results - last 24 hr 05/28/18 05/28/18 05/28/18 22:30 22:30 22:30 CBC w Diff Auto diff final WBC 10.2 RBC 5.31 Hgb 15.5 Hct 46.1 MCV 86.9 MCH 29.1 MCHC 33.6 RDW 14.2 Plt Count 241 MPV 9.4 Neut % (Auto) 69.5 Lymph % (Auto) 21.5 [place] % (Auto) 5.1 Eos % (Auto) 3.3 Baso % (Auto) 0.6 Neut # (Auto) 7.1 Lymph # (Auto) 2.2 [place] # (Auto) 0.5 Eos # (Auto) 0.3 Baso # (Auto) 0.1 WBC Differential . Differential Comment . PT 18.4 H INR 1.8 APTT 32.9 H Sodium 139 Potassium 4.8 Chloride 108 H Carbon Dioxide 23.7 Anion Gap 7 BUN 17 Creatinine 1.00 Estimated GFR 77 L Random Glucose 129 H Calcium 8.9 Magnesium 1.9 Total Bilirubin 0.4 AST 41 H ALT 31 Alkaline Phosphatase 62 Total Creatine Kinase 123 CK-MB (CK-2) 0.9 Troponin I Less than 0.02 L Total Protein 7.5 Albumin 3.9 Triglycerides Cholesterol LDL Cholesterol, Calc HDL Cholesterol Cholesterol/HDL Ratio 05/29/18 05/29/18 05/29/18 04:25 04:25 04:25 CBC w Diff Auto diff final WBC 8.1 RBC 4.92 Hgb 14.4 Hct 43.0 MCV 87.4 MCH 29.3 MCHC 33.5 RDW 14.1 Plt Count 193 MPV 9.0 Neut % (Auto) 62.9 Lymph % (Auto) 25.9 [place] % (Auto) 6.9 Eos % (Auto) 3.8 Baso % (Auto) 0.5 Neut # (Auto) 5.1 Lymph # (Auto) 2.1 [place] # (Auto) 0.6 Eos # (Auto) 0.3 Baso # (Auto) 0.0 WBC Differential . Differential Comment . PT INR APTT Sodium 142 Potassium 4.0 D Chloride 109 H Carbon Dioxide 28.3 Anion Gap 5 BUN 19 H Creatinine 0.90 Estimated GFR 87 L Random Glucose 115 H Calcium 8.4 L Magnesium Total Bilirubin AST ALT Alkaline Phosphatase Total Creatine Kinase CK-MB (CK-2) Troponin I 0.06 H Total Protein Albumin Triglycerides Cholesterol LDL Cholesterol, Calc HDL Cholesterol Cholesterol/HDL Ratio 05/29/18 05/29/18 04:25 10:20 CBC w Diff WBC RBC Hgb Hct MCV MCH MCHC RDW Plt Count MPV Neut % (Auto) Lymph % (Auto) [place] % (Auto) Eos % (Auto) Baso % (Auto) Neut # (Auto) Lymph # (Auto) [place] # (Auto) Eos # (Auto) Baso # (Auto) WBC Differential Differential Comment PT INR APTT Sodium Potassium Chloride Carbon Dioxide Anion Gap BUN Creatinine Estimated GFR Random Glucose Calcium Magnesium Total Bilirubin AST ALT Alkaline Phosphatase Total Creatine Kinase CK-MB (CK-2) Troponin I 0.28 H Total Protein Albumin Triglycerides 157 H Cholesterol 158 LDL Cholesterol, Calc 94 HDL Cholesterol 32.6 L Cholesterol/HDL Ratio 4.84 - Imaging Impressions Chest X-Ray 05/28/18 22:28 CONCLUSION: Linear scarring or atelectasis at the lung bases. There is also some chronic pleural change at the left lateral base. - ECG Interpretation: RBBB septal abnormality suggest IN twave inversion v1-v3 Caprini VTE Risk Assessment Caprini VTE Risk Assessment: Moderate/High Risk (score >= 2) Caprini Risk Assessment Model: Point Value = 1 Point Value = 2 Point Value = 3 Point Value = 5 Age 41-60 Minor surgery BMI > 25 kg/m2 Swollen legs Varicose veins or History of unexplained or recurrent spontaneous Oral contraceptives or hormone replacement Sepsis (< 1 month) Serious lung disease, including pneumonia (< 1 month) Abnormal pulmonary function Acute myocardial infarction Congestive heart failure (< 1 month) History of inflammatory bowel disease Medical patient at bed rest Age 61-74 Arthroscopic surgery Major open surgery (> 45 min) Laparoscopic surgery (> 45 min) Malignancy Confined to bed (> 72 hours) Immobilizing plaster cast Central venous access Age >= 75 History of VTE Family history of VTE Factor V Leiden Prothrombin [id number] Lupus anticoagulant Anticardiolipin antibodies Elevated serum homocysteine Heparin-induced thrombocytopenia Other congenital or acquired thrombophilia Stroke (< 1 month) Elective arthroplasty Hip, pelvis, or leg fracture Acute spinal cord injury (< 1 month) Prophylaxis Regimen: Total Risk Factor Score Risk Level Prophylaxis Regimen 0-1 Low Early ambulation 2 Moderate Order ONE of the following: *Sequential Compression Device (SCD) *Heparin 5000 units SQ BID 3-4 Higher Order ONE of the following medications: *Heparin 5000 units SQ TID *Enoxaparin/Lovenox 40 mg SQ daily (WT < 150 kg, CrCl > 30 mL/min) *Enoxaparin/Lovenox 30 mg SQ daily (WT < 150 kg, CrCl > 10-29 mL/min) *Enoxaparin/Lovenox 30 mg SQ BID (WT < 150 kg, CrCl > 30 mL/min) AND/OR *Sequential Compression Device (SCD) 5 or more Highest Order ONE of the following medications: *Heparin 5000 units SQ TID (Preferred with Epidurals) *Enoxaparin/Lovenox 40 mg SQ daily (WT < 150 kg, CrCl > 30 mL/min) *Enoxaparin/Lovenox 30 mg SQ daily (WT < 150 kg, CrCl > 10-29 mL/min) *Enoxaparin/Lovenox 30 mg SQ BID (WT < 150 kg, CrCl > 30 mL/min) AND *Sequential Compression Device (SCD) Assessment and Plan - Assessment (1) Chest pain Code(s): R07.9 - Chest pain, unspecified Status: Acute Plan: patient admitted with chest pain initial enzyme negative but did have positive troponin after that ekg no significant change but shows some septal changes discussed with cardiology to [facility] with plan cath this weekend start heparin drip. (2) COPD (chronic obstructive pulmonary disease) Code(s): J44.9 - Chronic obstructive pulmonary disease, unspecified Status: Acute Plan: continue home meds (3) Diabetes Code(s): E11.9 - Type 2 diabetes mellitus without complications Status: Acute (4) Subtherapeutic international normalized ratio (INR) Code(s): R79.1 - Abnormal coagulation profile Status: Acute Plan: hold coumadin will need cath (5) History of aortic valve replacement Code(s): Z95.2 - Presence of prosthetic heart valve Status: Acute Plan: continue current meds - Plan further plan as case develops (1) Chest pain Qualifiers: Chest pain type: unspecified Qualified Code(s): R07.9 - Chest pain, unspecified
[2018-05-29] MEDS: Atenolol 25 MG Tablet PO SCH (11:30)
[2018-05-29] MEDS: Gabapentin 300 MG Capsule PO SCH (11:30)
[2018-05-29 12:16] LABS: Hematocrit 46.5 % (39.0-51.0); Hemoglobin 15.3 gm/dL (13.0-17.0); Mean Corpuscular HGB Conc 32.9 % (32.0-36.0); Mean Corpuscular Hemoglobin 28.7 pg (27.0-34.0); Mean Corpuscular Volume 87.3 fL (80.0-100.0); Mean Platelet Volume 8.5 fL (7.0-11.0); Platelet Count 202 th/mm3 (150-450); Red Blood Count 5.33 mil/mm3 (4.50-5.90); Red Cell Distribution Width 14.2 % (11.6-17.2); White Blood Count 8.1 th/mm3 (4.0-11.0)
[2018-05-29 12:35] LABS: Activated Partial Thrombo Time 32.6 sec (24.3-30.1); INR 1.9 Ratio
[2018-05-29] MEDS: Insulin NovoLOG Aspart Correctional Sugar Inj SQ SCH ×2 (18:34→20:06)
[2018-05-30] MEDS: Insulin NovoLOG Aspart Correctional Sugar Inj SQ SCH ×6 (01:07→21:40)
[2018-05-30] MEDS: Heparin Drip 25,000 UNIT/250 ML BAG IV.CONT PRN ×2 (01:57→21:52)
[2018-05-30 06:27] LABS: INR 1.6 Ratio; Prothrombin Time 16.1 sec (9.8-11.6)
[2018-05-30 07:13] LABS: Hematocrit 42.6 % (39.0-51.0); Hemoglobin 14.2 gm/dL (13.0-17.0); Mean Corpuscular HGB Conc 33.4 % (32.0-36.0); Mean Corpuscular Volume 86.6 fL (80.0-100.0); Mean Platelet Volume 9.4 fL (7.0-11.0); Platelet Count 187 th/mm3 (150-450); Red Blood Count 4.92 mil/mm3 (4.50-5.90); Red Cell Distribution Width 14.8 % (11.6-17.2); White Blood Count 8.2 th/mm3 (4.0-11.0)
[2018-05-30] MEDS: Atenolol 25 MG Tablet PO SCH (09:47)
[2018-05-30] MEDS: Gabapentin 300 MG Capsule PO SCH (09:47)
--- NOTE | 2018-05-30 12:36 | P.PNIM ---
Subjective Interval history: Pt has NO new complaints. Denies chest pain, palpitations, SOB, n/v, or diaphoresis. Physical Exam Vital signs: 05/30/18 10:00 05/30/18 11:00 05/30/18 11:19 Temperature 97.6 F Pulse Rate 74 61 60 Respiratory Rate 18 16 Blood Pressure 114/68 Pulse Oximetry 95 Narrative: GENERAL: This is a well-nourished, well-developed patient, in no apparent distress. CARDIOVASCULAR: Regular rate and rhythm without murmurs, gallops, or rubs. RESPIRATORY: Clear to auscultation. Breath sounds equal bilaterally. No wheezes , rales, or rhonchi. GASTROINTESTINAL: Abdomen soft, non-tender, nondistended. Normal active bowel sounds MUSCULOSKELETAL: Extremities without clubbing, cyanosis, or edema. NEURO: Alert & Oriented x4 to person, place, time, situation. Moves all ext x4 Results - Labs CBC & Chem 7: 05/30/18 05:45 05/29/18 04:25 - Imaging Chest X-Ray 05/28/18 22:28 CONCLUSION: Linear scarring or atelectasis at the lung bases. There is also some chronic pleural change at the left lateral base. Assessment and Plan - Assessment (1) Chest pain Code(s): R07.9 - Chest pain, unspecified Status: Acute Plan: - Pt is 58 y/o M with h/o CAD, Atrial fibrillation on coumadin, AVR, COPD, and current smoker - Pt admitted to [facility] with c/o chest pain with radiation to the left arm, neck, and back. - Pt's [employer] Typist is Dr. Massey. - troponins: 0.02, 0.06, 0.28 - serial EKGs: RBBB unchanged from previous EKGs - atenolol, lipitor, heparin gtt, NTG oint - Pt planned for [facility] with Dr. Massey (05/31) - supportive care - Case d/w pt, , and daughter at the bedside (05/30) COPD - prednisone 5mg daily outpt, hold - prn duonebs - continue singular, anoro ellipta DM2 - HgA1C 8.7 (03/2018) - hold amaryl, metformin, and actos - SSI HTN, essential, stable - cozaar held - continue atenolol Atrial Fibrillation - coumadin held, on heparin - atenolol (2) COPD (chronic obstructive pulmonary disease) Code(s): J44.9 - Chronic obstructive pulmonary disease, unspecified Status: Chronic (3) Diabetes Code(s): E11.9 - Type 2 diabetes mellitus without complications Status: Chronic (4) History of aortic valve replacement Code(s): Z95.2 - Presence of prosthetic heart valve Status: Chronic (1) Chest pain Qualifiers: Chest pain type: unspecified Qualified Code(s): R07.9 - Chest pain, unspecified
--- NOTE | 2018-05-30 12:49 | MB ---
cc: Geronimo Castañeda MD DATE: 05/30/2018 REASON FOR CONSULTATION: Evaluation of elevated troponin and chest pain. HISTORY OF PRESENT ILLNESS: Senthil Moreira is a 58-year-old man with multiple medical problems. He had a [facility] aortic valve replacement on 03/22/2013 in [place]. His last heart catheterization performed here was in 2016. He described as having 20% LAD, 40% circumflex marginal branch disease and irregularities of the right coronary artery. Unfortunately, he has been smoking a pack a day since he was 16 years of age and has not quit, he has COPD from this and he requires nebulizers every 4 hours. He is also obese, has hypertension and diabetes. He has hyperlipidemia, the only risk factor. He does not have a family history of coronary artery disease. Both parents of emphysema. On night around 9 p.m., he developed severe pain in his left chest going down to his left arm and radiating to the back, lasted 6 hours. He finally came to the ER, he got relief with morphine and his troponin has since bumped. He has had no further pain since admission. He has noticed being extra tired for the last 2 weeks. He said some indigestion-type discomfort in the left chest over these 2 weeks. He had some swelling in his feet last Friday after fishing, which he has never had before. He has been bothered with palpitations for the past 2 weeks including an episode of palpitations last night with a 10-beat run of a fast monomorphic V-tach. He only takes breathing treatments every 4 hours. He wears a CPAP mask. Other than palpitations, he has had no further angina since this admission. PAST MEDICAL HISTORY: Includes diabetes with peripheral neuropathy, burning and numbness in his feet, obesity with sleep apnea on CPAP at night, emphysema on regular round the clock nebulizers, hypertension, diabetes, obesity, hyperlipidemia. PAST SURGICAL HISTORY: Includes open heart surgery for his valve. FAMILY HISTORY: Positive for his parents dying of emphysema. SOCIAL HISTORY: He used to work as a mechanical assembler. Drinks alcohol occasionally. He is . REVIEW OF SYSTEMS: Denies any issues with his GI tract or urinary tract. He has not had any bleeding. He has burning and numbness in his feet and toes. Remaining review of systems is negative. PHYSICAL EXAMINATION: GENERAL: Reveals a severely obese, pleasant white male in no acute distress. VITAL SIGNS: Charted. Blood pressure is somewhat low. HEENT: Unremarkable. NECK: No JVD. No bruits. CHEST: Diminished breath sounds with few scattered expiratory wheezes. CARDIAC: Shows soft S1 click, S2. Regular rate and rhythm. I cannot appreciate any murmurs. ABDOMEN: Soft, obese, nontender. EXTREMITIES: No clubbing, cyanosis or edema. Pulses are intact including radial pulses. DIAGNOSTIC STUDIES: His EKG shows normal sinus rhythm, left axis deviation and no significant ST-T wave changes. His chest x-ray shows normal heart size, linear density at the bases bilaterally, likely related atelectasis or scarring and stable pleural disease of the left lateral base. LABORATORY DATA: Showed creatinine of 0.9. Troponin went from 0.02-0.28. LDL cholesterol is 94, triglycerides 157. Hematocrit is 42.6. IMPRESSION: Acute non-ST segment elevation myocardial infarction. The patient has multiple cardiac risk factors including ongoing smoking despite having been counseled to stop. He has severe chronic obstructive pulmonary disease and has obesity. RECOMMENDATIONS: He will need a cardiac catheterization. I would rather not perform it today since I am on emergency room call and he is currently stable. I may choose to do this tomorrow or wait until Friday. Hopefully, this is something can be easily revascularized or treated medically since he has already had one open heart and has severe COPD making a redo operation significantly hazardous. He has been instructed to quit smoking. I am going to add nitroglycerin paste. He is currently on heparin and aspirin. Warfarin is on hold. I am going to hold the losartan due to low blood pressure. I am going to check an echo to assess LV function. Further therapy to follow. MD JESSICA Flowers/danila/chepe , 09:02 AM , 09:31 AM
[2018-05-30] MEDS ORDERED: Dextrose 50% in Water 50 ML Vial IV.PUSH PRN (13:07)
--- NOTE | 2018-05-30 14:55 | ECHRPT ---
Indication: CORONARY ATHEREOSCLEROSIS CONCLUSIONS The left ventricular systolic function is hyperdynamic with an estimated ejection fraction in the ra nge of 65- 70%. Normal left ventricular size. Wall thickness is normal. No regional wall motion abnormalities are present. Mild mitral valve regurgitation. The aortic valve is not well visualized. Mild aortic valve stenosis. Aortic valve area is 1.1 cm. Aortic valve mean gradient is 21.5 mmHg. Trace aortic valve regurgitation. There is trace tricuspid valve regurgitation. The estimated pulmonary arterial pressure is 43.6 mmHg. BP: / HR: Rhythm: Sinus MEASUREMENTS (Male / Female) Normal Values Technical Quality:Good 2D ECHO LV Diastolic Diameter PLAX 5.0 cm 4.2 - 5.9 / 3.9 - 5.3 cm LV Systolic Diameter PLAX 3.4 cm IVS Diastolic Thickness 1.1 cm 0.6 - 1.0 / 0.6 - 0.9 cm LVPW Diastolic Thickness 1.1 cm 0.6 - 1.0 / 0.6 - 0.9 cm LV Relative Wall Thickness 0.4 RV Internal Dim ED PLAX 2.7 cm LVOT Diameter 1.7 cm LA Systolic Diameter LX 3.4 cm 3.0 - 4.0 / 2.7 - 3.8 cm LV Ejection Fraction MOD 4C 67.7 % LV Ejection Fraction 4C AL 68.8 % M-MODE Aortic Root Diameter MM 1.8 cm LA Systolic Diameter MM 3.4 cm LA Ao Ratio MM 1.9 AV Cusp Separation MM 1.7 cm DOPPLER AV Peak Velocity 346.5 cm/s AV Peak Gradient 48.0 mmHg AV Mean Gradient 21.5 mmHg AV Velocity Time Integral 59.7 cm AI Peak Velocity 390.0 cm/s AI Peak Gradient 60.8 mmHg AI Pressure Half Time 492.5 ms LVOT Peak Velocity 160.0 cm/s LVOT Peak Gradient 10.2 mmHg LVOT Velocity Time Integral 27.9 cm AV Area Cont Eq vti 1.1 cm AV Area Cont Eq pk 1.0 cm MV Area PHT 3.3 cm Mitral E Point Velocity 113.0 cm/s Mitral A Point Velocity 78.5 cm/s Mitral E to A Ratio 1.4 LV E' Lateral Velocity 9.6 cm/s Mitral E to LV E' Lateral Ratio 11.8 LV E' Septal Velocity 5.9 cm/s Mitral E to LV E' Septal Ratio 19.3 TR Peak Velocity 290.0 cm/s TR Peak Gradient 33.6 mmHg Right Atrial Pressure 10.0 mmHg Pulmonary Artery Systolic Pressu 43.6 mmHg Right Ventricular Systolic Press 43.6 mmHg PV Peak Velocity 103.0 cm/s PV Peak Gradient 4.2 mmHg FINDINGS LEFT VENTRICLE The left ventricular systolic function is hyperdynamic with an estimated ejection fraction in the ra nge of 65- 70%. Normal left ventricular size. Wall thickness is normal. No regional wall motion abnormalities are present. RIGHT VENTRICLE Normal right ventricular size and systolic function. LEFT ATRIUM The left atrial size is normal. RIGHT ATRIUM The right atrial size is normal. ATRIAL SEPTUM Normal atrial septal thickness without atrial level shunting by limited color doppler interrogation. AORTA The aortic root and proximal ascending aorta are normal in size on limited imaging. MITRAL VALVE Mild mitral annular calcification. Mild mitral valve regurgitation. AORTIC VALVE Mechanical aortic valve. Aortic valve mean gradient is 21.5 mmHg. Trace aortic valve regurgitation. TRICUSPID VALVE Structurally normal tricuspid valve. There is trace tricuspid valve regurgitation. The estimated pulmonary arterial pressure is 43.6 mmHg. PULMONARY VALVE No pulmonary valve regurgitation or stenosis. VESSELS The inferior vena cava is normal in size. PERICARDIUM No pericardial effusion. Geronimo Castañeda MD (Electronically Signed) Final Date:30 May 2018 14:54
--- NOTE | 2018-05-30 16:03 | ECG ---
Date Performed: 05/29/2018 Time Performed: 10:20:24 PTAGE: 58 years EKG: SINUS BRADYCARDIA Left axis deviation. Intraventricular conduction disturbance. LEFT ANTERI OR FASCICULAR BLOCK MINIMAL ST DEPRESSION When compared to previous tracing, previous tracing showed right Bundle branch block and this tracing shows intraventricular Conduction distiurbance. ABNORMAL E CG PREVIOUS TRACING : 05/29/2018 03.41 DOCTOR: Damien Lopez Interpretating Date/Time 05/30/2018 16:03:19
[2018-05-30] MEDS: Umeclindinium 62.5 MCG/Vilanterol 25 MCG Inhaler INH SCH (18:35)
[2018-05-30] MEDS: Montelukast 10 MG Tablet PO SCH (18:53)
[2018-05-31 05:51] LABS: INR 1.2 Ratio; Prothrombin Time 12.3 sec (9.8-11.6)
[2018-05-31 06:08] LABS: Carbon Dioxide 23.1 meq/L (21.0-32.0)
[2018-05-31] MEDS: Atenolol 25 MG Tablet PO SCH (08:32)
[2018-05-31] MEDS: Gabapentin 300 MG Capsule PO SCH (08:32)
[2018-05-31] MEDS: Insulin NovoLOG Aspart Correctional Sugar Inj SQ SCH ×4 (08:33→21:00)
--- NOTE | 2018-05-31 09:05 | P.PNIM ---
Subjective Interval history: Pt has no new complaints. Pt denies chest pain, palpitations, sob, n/v, diaphoresis. Physical Exam Vital signs: 05/31/18 04:00 05/31/18 05:00 05/31/18 06:00 Temperature 98.4 F Pulse Rate 78 66 76 Respiratory Rate 16 Blood Pressure 117/84 Pulse Oximetry 96 Narrative: GENERAL: This is a well-nourished, well-developed patient, in no apparent distress. CARDIOVASCULAR: Regular rate and rhythm without murmurs, gallops, or rubs. RESPIRATORY: Clear to auscultation. Breath sounds equal bilaterally. No wheezes , rales, or rhonchi. GASTROINTESTINAL: Abdomen soft, non-tender, nondistended. Normal active bowel sounds MUSCULOSKELETAL: Extremities without clubbing, cyanosis, or edema. NEURO: Alert & Oriented x4 to person, place, time, situation. Moves all ext x4 Results - Labs CBC & Chem 7: 05/31/18 04:10 05/31/18 04:10 05/31/18 05:40 Stool Stool Occult Blood (MONIQUE) - Final Hemoccult negative - Imaging Chest X-Ray 05/28/18 22:28 CONCLUSION: Linear scarring or atelectasis at the lung bases. There is also some chronic pleural change at the left lateral base. Assessment and Plan - Assessment (1) Chest pain Code(s): R07.9 - Chest pain, unspecified Status: Acute Plan: - Pt is 58 y/o M with h/o CAD, Atrial fibrillation on coumadin, AVR, COPD, and current smoker - Pt admitted to [facility] with c/o chest pain with radiation to the left arm, neck, and back. - Pt's Civil Process Server is Dr. Massey. - troponins: 0.02, 0.06, 0.28 - serial EKGs: RBBB unchanged from previous EKGs - atenolol, lipitor, heparin gtt, NTG oint - Pt planned for [facility] (06/01) - supportive care - Case d/w pt, , and 2 daughters were updated at the bedside. COPD - prednisone 5mg daily outpt, hold - prn duonebs - continue singular, anoro ellipta DM2 - HgA1C 8.7 (03/2018) - hold amaryl, metformin, and actos - SSI HTN, essential, stable - cozaar held - continue atenolol Atrial Fibrillation - coumadin held, on heparin - atenolol (2) COPD (chronic obstructive pulmonary disease) Code(s): J44.9 - Chronic obstructive pulmonary disease, unspecified Status: Chronic (3) Diabetes Code(s): E11.9 - Type 2 diabetes mellitus without complications Status: Chronic (4) History of aortic valve replacement Code(s): Z95.2 - Presence of prosthetic heart valve Status: Chronic (1) Chest pain Qualifiers: Chest pain type: unspecified Qualified Code(s): R07.9 - Chest pain, unspecified
[2018-05-31 09:12] LABS: Baso # (Auto) 0.1 th/mm3 (0.0-0.2); Baso % (Auto) 0.9 % (0.0-2.0); Eos # (Auto) 0.3 th/mm3 (0.0-0.4); Eos % (Auto) 3.9 % (0.0-4.0); Hematocrit 41.3 % (39.0-51.0); Hemoglobin 13.7 gm/dL (13.0-17.0); Lymph # (Auto) 1.7 th/mm3 (1.0-4.8); Lymph % (Auto) 21.3 % (9.0-44.0); Mean Corpuscular HGB Conc 33.3 % (32.0-36.0); Mean Corpuscular Hemoglobin 29.4 pg (27.0-34.0); Mean Corpuscular Volume 88.2 fL (80.0-100.0); Mean Platelet Volume 9.5 fL (7.0-11.0); Mono # (Auto) 0.6 th/mm3 (0.0-0.9); Mono % (Auto) 7.7 % (0.0-8.0); Neut # (Auto) 5.2 th/mm3 (1.8-7.7); Neut % (Auto) 66.2 % (16.0-70.0); Platelet Count 193 th/mm3 (150-450); Red Blood Count 4.68 mil/mm3 (4.50-5.90); White Blood Count 7.9 th/mm3 (4.0-11.0)
--- NOTE | 2018-05-31 09:28 | P.PNCA ---
Subjective Interval history: No chest pain. Family in room Physical Exam Vital signs: Vital Signs 05/30/18 10:00 05/30/18 11:00 05/30/18 11:19 Temperature 97.6 F Pulse Rate 74 66 60 Respiratory Rate 18 16 Blood Pressure 114/68 Pulse Oximetry 95 05/30/18 12:00 05/30/18 13:00 05/30/18 14:00 Temperature Pulse Rate 52 L 60 52 L Respiratory Rate Blood Pressure Pulse Oximetry 05/30/18 15:00 05/30/18 15:05 05/30/18 16:00 Temperature 97.5 F L Pulse Rate 65 67 75 Respiratory Rate 18 18 Blood Pressure 110/55 L Pulse Oximetry 96 95 05/30/18 17:00 05/30/18 18:00 05/30/18 19:00 Temperature Pulse Rate 70 68 66 Respiratory Rate Blood Pressure Pulse Oximetry 05/30/18 20:00 05/30/18 21:00 05/30/18 21:03 Temperature 98.1 F Pulse Rate 67 66 68 Respiratory Rate 18 20 Blood Pressure 117/71 Pulse Oximetry 95 05/30/18 22:00 05/30/18 23:00 05/31/18 00:00 Temperature Pulse Rate 74 94 H 63 Respiratory Rate 16 Blood Pressure 101/59 L Pulse Oximetry 96 05/31/18 01:00 05/31/18 02:00 05/31/18 03:00 Temperature Pulse Rate 62 68 68 Respiratory Rate Blood Pressure Pulse Oximetry 05/31/18 04:00 05/31/18 05:00 05/31/18 06:00 Temperature 98.4 F Pulse Rate 78 66 76 Respiratory Rate 16 Blood Pressure 117/84 Pulse Oximetry 96 Intake & Output 05/30/18 05/31/18 05/31/18 18:59 06:59 18:59 Intake Total 1160 / 1160 490 / 490 Output Total 1160 / 1160 Balance 0 / 0 490 / 490 Weight 92.3 kg Intake: IV 250 / 250 Heparin/D5W 25,000 U/250 mL 25, 250 / 250 000 unit In 250 ml @ Per Protocol IV.CONT TITRATE PRN Rx #:[id number] Oral 1160 / 1160 240 / 240 Output: Urine 1160 / 1160 Other: # Voids 3 Date of Last Bowel Movement 05/30/18 # Bowel Movements 1 - Constitutional no acute distress - Routine HEENT Exam Head: Present: normocephalic, atraumatic - Routine Neck Exam Present: supple. Absent: JVD - Routine Respiratory Exam Present: CTA bilaterally - Routine Cardiovascular Exam Comments: Normal S1, Click S2, RRR - Routine Abdominal Exam Present: soft - Routine Extremities Exam Absent: cyanosis, clubbing, edema - Routine Neurological Exam Present: alert, oriented X3 - Routine Psychiatric Exam Present: normal affect Assessment and Plan - Assessment (1) H/O mechanical aortic valve replacement Code(s): Z95.2 - Presence of prosthetic heart valve Status: Acute (2) Non-STEMI (non-ST elevated myocardial infarction) Code(s): I21.4 - Non-ST elevation (NSTEMI) myocardial infarction Status: Acute Plan: Currently stable. Plan cardiac cath tomorow morning. Informed consent. (3) Coronary artery disease Code(s): I25.10 - Atherosclerotic heart disease of [place] coronary artery without angina pectoris Status: Acute (4) Obesity Code(s): E66.9 - Obesity, unspecified Status: Acute (5) COPD (chronic obstructive pulmonary disease) Code(s): J44.9 - Chronic obstructive pulmonary disease, unspecified Status: Chronic (6) Tobacco dependence Code(s): F17.200 - Nicotine dependence, unspecified, uncomplicated Status: Acute Plan: Counseled on complete cessation
[2018-05-31] MEDS ORDERED: diazePAM 5 MG Tablet PO SCH (09:30)
[2018-05-31] MEDS: Umeclindinium 62.5 MCG/Vilanterol 25 MCG Inhaler INH SCH (15:38)
[2018-05-31] MEDS: Montelukast 10 MG Tablet PO SCH (18:23)
[2018-05-31] MEDS: Heparin Drip 25,000 UNIT/250 ML BAG IV.CONT PRN (22:24)
[2018-06-01] MEDS: Sod Chloride 0.9% Inj 1,000 ML IV.CONT SCH ×4 (00:48→22:58)
[2018-06-01 05:55] LABS: Activated Partial Thrombo Time 49.2 sec (24.3-30.1); INR 1.1 Ratio; Prothrombin Time 10.9 sec (9.8-11.6)
[2018-06-01] MEDS: Atenolol 25 MG Tablet PO SCH (06:13)
[2018-06-01] MEDS: Gabapentin 300 MG Capsule PO SCH (06:13)
[2018-06-01] MEDS ORDERED: Heparin/NS PF Inj 1,500 ML ONE (07:05)
[2018-06-01] MEDS ORDERED: Heparin 10,000 UNITS/10 ML Vial (for IV use) ONE ×2 (07:05→07:24)
[2018-06-01] MEDS ORDERED: fentaNYL Citrate Inj 100 MCG/2 ML Ampul ONE (07:24)
--- NOTE | 2018-06-01 09:33 | CATHPROC ---
OneBuckResume HIS Report Study Information Study Number Admission Scheduled Start Study Start [id number] May 28 2018 11:37PM 06/01/2018 Jun 01 2018 6:51AM [place] [facility] Cardiac Catheterization Admit Source Facility Department Emergency department [facility] Hospitalist Physician and Clinical Staff Initial Geronimo Holder Director Of Plant Operations Matthias Valadez RN Recorder Jessica Li,RT(R) Scrub Lisa Gr,RT(R) Procedures Performed Procedure Location (Site) Vessel Name Coronary Angiograms LCA Left Coronary Drug Eluting Inflatio PDA Mid Right Coronary L Heart Cath Wire insertion Radial (right) Radial Art. Equipment Time Map Colorer Description Size Mfg Part Number Used/Scraped WIRE, BALANCE MIDDLEWEIGHT [id number] 08:25 [employer] 190CM Used 190CM *[id number] TRANSDUCER, TRUWAVE [id number] 07:34 EDWARDS BARLOW * Used W/STOCKCOCK *[id number] [phone] *[id number] [phone] *[id number] 670-056-00 *[id number] 07:34 MALLINCKRODT SYRINGE, ANGIOMAT 150ML 150ML *[id number] Used 2SUB [id number] 07:34 [employer] BLANKET,WARM AIR CCL * Used *[id number] 07:34 [employer] PACK, CCL CUSTOM * Used *[id number] 07:34 [employer] SUPPORT, ARTERIAL ADULT 55866 *[id number] Used [id number] 07:34 [employer] PACER PEN, SKIN DUAL W/ RULER * Used *[id number] 08:00 [employer] JL 3.5 DXTERITY CATHETER FR 5 Used *[id number] 08:54 [employer] STENT, 2.5 8MM CECILIO 2.5 8MM Used *[id number] 08:56 [employer] MEDICAL 30 JESUS INDEFLATOR Used *[id number] BAND, RADIAL COMPRESSION TR [id number] 09:14 [employer] MEDICAL 24CM Used SHORT 24 *[id number] 07:34 [employer] MEDICAL WIRE, EXCHANGE 260CM 3MMJ 260CM Used *[id number] 07:34 NAMIC MANIFOLD, 4 PORT * Used *[id number] 07:34 [employer]COM[employer] OMNIPAQUE, 350 MG, 100ML 100ML [id number] Used 08:04 NYCOMED OMNIPAQUE, 350 MG, 150ML 150ML [id number] Used 07:34 [employer] JELCO NEEDLE 4056 *[id number] Used CATHETER, FR5 OPTITORQUE [id number] 07:54 [employer] MEDICAL FR 5 Used RADIAL TIG 4.0 *[id number] SHEATH, FR6 TRANSRADIAL [id number] 07:34 [employer] MEDICAL FR 6 Used SLENDER 10CM *[id number] 08:59 [employer] PRIME WIRE, VERRATA 185CM 185CM Used *[id number] Equipment Model, Serial, Lot Number and Expiration Data Description Model Number Serial Number Lot Number Expiration Date PRIME WIRE, VERRATA 185CM 27943 [id number] 03-12-2021 STENT, 2.5 8MM CECILIO [id number] 07-29-2019 History: Current Medications Medication Dosage/Unit Route Frequency Last Date/Time Taken Coumadin LIPITOR Beta Janneth History: Allergies Allergy Reaction Penicillin UNKNOWN penicillin G UNKNOWN History: Risk Factors Family History of Hypertension Dyslipidemia Previous AK Previous Heart Failure Premature CAD Yes Yes No No No Prior Valve Prior PCI Prior PCIDate Prior CABG Surgery Yes Yes 07/11/2016 No Cerebrovascular Peripheral Artery Chronic Lung On Dialysis Diabetes Disease Disease Disease No No No Yes Yes History: Symptoms/Diagnosis Selection Items Chest pain History: Arrhythmias Selection Items Atrial fibrillation History: Other Disease Selection Items COPD History: Other Current Smoker Method Packs a Day Years Used Pack Years Yes Cigarettes 1 42 42 Labs Hgb (g/dl) Hct (%) WBC (l/cumm) Platelets (thousands) 11.60-17.00 35.00-51.00 4.00-11.00 150.00-450.00 13.7 41.3 7.9 193 Glucose (mg/dl) BUN (mg/dl) Creatinine (mg/dl) BUN:Creatinine (1:x) 74.00-106.00 7.00-18.00 0.50-1.30 10.00-20.00 185 11 0.8 13.8 Na (meq/l) K (meq/l) 136.00-145.00 3.50-5.10 140 4 INR (PTT:PT) 0.90-1.10 1.1 Troponin I (ng/ml) CPK (u/l) CPK-MB (ng/ML) 0.02-0.05 26.00-308.00 0.50-3.60 0.28 123 0.9 Medication Medication Total Dose (Bolus/Oral) Medication Total Dosage/Unit 1% XYLOCAINE 5 mL FENTANYL 50 mcg HEPARIN 2500 units NTG (IC) 200 mcg OXYGEN 5 l/min PLAVIX 600 mg RADIAL COCKTAIL 10 mL (Bolus) VERSED 3 mg Medications (Bolus/Oral) Medication Time Given Dosage/Unit Administered By Reason OXYGEN 06/01/2018 7:33:37 AM 2 l/min Matthias Valadez 2 l/min OXYGEN given in lab by Matthias Valadez RN via Nasal. Ordered by Geronimo Castañeda. VERSED 06/01/2018 7:45:28 AM 2 mg Allyson, Matthias 2 mg VERSED given in lab by Matthias Valadez RN via Peripheral IV. Ordered by Geronimo Castañeda. VERSED 06/01/2018 7:54:46 AM 1 mg Allyson, Matthias 1 mg VERSED given in lab by Matthias Valadez RN in Left Hand via Peripheral IV. Ordered by Geronimo Castañeda . FENTANYL 06/01/2018 7:56:03 AM 50 mcg Allyson, Matthias 50 mcg FENTANYL given in lab by Matthias Valadez RN in Left Hand via Peripheral IV. Ordered by Aleksandr Castañeda. 1% XYLOCAINE 06/01/2018 7:56:59 AM 5 mL Geronimo Castañeda 5 mL 1% XYLOCAINE given in lab by Geronimo Castañeda in Right Radial via Subcutaneous. Ntg 200mcg Verapamil 2.5mg Heparin RADIAL COCKTAIL 06/01/2018 7:59:24 AM 5 mL (Bolus) Geronimo Castañeda 2500U 5 mL (Bolus) RADIAL COCKTAIL given in lab by Geronimo Castañeda in Right Radial via Radial. Using [Solutio n Name]. Reason: Ntg 200mcg Verapamil 2.5mg Heparin 2500U. OXYGEN 06/01/2018 8:03:42 AM 3 l/min Matthias Valadez 3 l/min OXYGEN given in lab by Matthias Valadez RN via Nasal. Ordered by Geronimo Castañeda. HEPARIN 06/01/2018 8:45:53 AM 2500 units Matthias Valadez 2500 units HEPARIN given in lab by Matthias Valadez RN in Left Hand via Peripheral IV. Ordered by Geronimo Castañeda. RADIAL COCKTAIL 06/01/2018 8:50:37 AM 5 mL (Bolus) Geronimo Castañeda 5 mL (Bolus) RADIAL COCKTAIL given in lab by Geronimo Castañeda in Right Radial via Radial. Using [Soljoyio n Name]. Reason: Ntg 200mcg Verapamil 2.5mg NTG (IC) 06/01/2018 9:01:52 AM 100 mcg Geronimo Castañeda 100 mcg NTG (IC) given in lab by Geronimo Castañeda in Right Radial via Intra-coronary. NTG (IC) 06/01/2018 9:06:43 AM 100 mcg Geronimo Casatñeda 100 mcg NTG (IC) given in lab by Geronimo Castañeda in Right Radial via Intra-coronary. PLAVIX 06/01/2018 9:21:21 AM 600 mg Matthias Valadez 600 mg PLAVIX given in lab by Matthias Valadez, RN via Oral. Ordered by Geronimo Castañeda. Medication (Drip) Medication Time Given Dosage/Unit Concentration/Unit Diluent (ml) Solution IV Solutions 06/01/2018 7:20:10 AM 50 mL (IV) NaCl .9 Patient arrived on IV Solutions in Left Hand via Peripheral IV. Pump/Drip Flow using NaCl .9. Initial Case Assessment Cardiovascular HR NIBP 57 112/75 Edema Present Skin color Skin None Normal Warm Dry Circulatory - Right Pulses Femoral Radial 2 1 Scale (0,1,2,3,4,d) Circulatory - Left Pulses Femoral Radial 2 Scale (0,1,2,3,4,d) Neurological State Oriented to time-place- Alert Moves all extremities person Respiration - General Respiration Rate SpO2 (%) O2 (lpm) (B/min) 18 94 2 Chronological Log Time Study Chronological Log 7:19:49 Patient arrived via Bed. 7:19:50 Patient Name, D.O.B, / Armband Verified By R.N. 7:19:50 Consent signed by the physician and the patient and verified by the [facility]ist staff. 7:19:59 Pre-op and post- op instructions given; patient acknowledges understanding of instructions . 7:20:01 Presedation assessment performed by [facility] Hospitalist RN. 7:20:03 Patient has been NPO for More than 6Hrs. 7:20:05 Skin Breakdown- none per patient 7:20:06 Patient Warmer Placed on the Table. 7:20:08 Jd Prominences Protected 7:20:09 A # 20 IV was noted in the Hand (left). Grade = 0 7:20:10 Patient arrived on IV Solutions in Left Hand via Peripheral IV. Pump/Drip Flow using NaCl .9. 7:20:11 History and physical on the chart or being dictated. Assessment: Initial Case, HR=57 BPM, IICO=377/75 mmhg, Edema=None, Color=Normal, Skin = Warm, Dr y Right Pulses: Femoral=2, Radial=1 7:20:11 Left Pulses: Femoral=2 Neurological: State=Alert, Ox3, BOJORQUEZ Respiration: Resp=18 B/min, SpO2=94 %, O2=2 lpm Vitals capture started with the following parameters, Patient=Adult, Interval=5 min, Initial Pre mkefn=122 mmHg, 7:29:04 Deflation Rate=5 mmHg, Cuff placed on Left Leg 7:29:15 Reference ECG taken 7:29:44 HR=58 bpm, KYKT=570/75 mmhg 7:33:37 2 l/min OXYGEN given in lab by Matthias Valadez RN via Nasal. Ordered by Geronimo Castañeda. 7:34:39 HR=59 bpm, IEVL=861/71 mmhg, SpO2=95 %, Resp=20 B/min 7:38:24 Right Radial and groin(s) prepped with 2% chlorhexidine, and draped after a 3 min. waiting t miranda. 7:39:38 HR=57 bpm, DVAM=364/78 mmhg, SpO2=97 %, Resp=25 B/min 7:42:24 MD arrived. 7:44:39 HR=56 bpm, RGDA=730/75 mmhg, SpO2=97 % 7:45:28 2 mg VERSED given in lab by Matthias Valadez RN via Peripheral IV. Ordered by Geronimo Castañeda. 7:48:32 Pressure channel 1 zeroed. 7:49:42 HR=61 bpm, HRVC=985/69 mmhg, SpO2=96.0 %, Resp=20 B/min 7:54:43 HR=61 bpm, YAAQ=353/61 mmhg, SpO2=96.0 % 7:54:46 1 mg VERSED given in lab by Matthias Valadez RN in Left Hand via Peripheral IV. Ordered by Geronimo Ojeda. Time Out. Correct patient, correct procedure, correct physician, labs, allergies, and equipment verified with blood bank laboratory technician 7:54:56 team present. Fire risk assesment completed (see hard stop sheet for coding). Time Out Concu rred by MD and individual staff in procedure. 7:56:03 50 mcg FENTANYL given in lab by Matthias Valadez, RN in Left Hand via Peripheral IV. Ordered by Geronimo Castañeda. 7:56:45 Case Start 7:56:59 5 mL 1% XYLOCAINE given in lab by Geronimo Castañeda in Right Radial via Subcutaneous. 7:58:33 Access site was Right Radial Artery . A SHEATH, FR6 TRANSRADIAL SLENDER 10CM FR 6 was advanced into the Radial (right) using the Marion vogel 7:58:53 technique. 5 mL (Bolus) RADIAL COCKTAIL given in lab by Geronimo Castañeda in Right Radial via Radial. Using [So lution Name]. 7:59:24 Reason: Ntg 200mcg Verapamil 2.5mg Heparin 2500U. 7:59:42 HR=55 bpm, PHHV=150/62 mmhg, SpO2=93.0 % A JL 3.5 DXTERITY CATHETER FR 5 was advanced over a wire. OMNIPAQUE, 350 MG, 150ML 150ML was use d for 8:01:07 injections. Recorded Pressure: Ao, HR=61, Condition=Condition 1 8:03:10 (Aorta) Ao 90/61/74 8:03:28 The LCA was injected and visualized at various angles. OMNIPAQUE, 350 MG, 150ML 150ML used. 8:03:42 3 l/min OXYGEN given in lab by Matthias Valadez, RN via Nasal. Ordered by Geronimo Castañeda. 8:04:43 HR=58 bpm, NIBP=95/59 mmhg, SpO2=92 % 8:06:38 A WIRE, EXCHANGE 260CM 3MMJ 260CM was inserted via Radial (right). 8:06:58 Wire removed 8:10:19 HR=61 bpm, NIBP=99/58 mmhg, SpO2=95 % 8:14:41 HR=57 bpm, NIBP=98/61 mmhg, SpO2=95 % 8:19:42 HR=62 bpm, RTPZ=743/56 mmhg, SpO2=92.0 % After removing the current catheter a XB 4.0 GUIDE CATHETER FR 6 was advanced over a WIRE, EXCHA NGE 260CM 8:24:34 3MMJ 260CM. 8:24:47 HR=57 bpm, GVLF=198/56 mmhg, SpO2=95.0 % 8:27:23 Activated Clotting Time Drawn 8:28:53 Catheter was removed 8:30:21 HR=56 bpm, NIBP=99/64 mmhg, SpO2=94.0 % 8:31:49 ACT (Normal Range 90-180) = 236 A XB 3.5 GUIDE CATHETER FR 6 was advanced over a wire. OMNIPAQUE, 350 MG, 150ML 150ML was used f or 8:33:21 injections. 8:33:45 A WIRE, EXCHANGE 260CM 3MMJ 260CM was inserted via Radial (right). 8:34:43 HR=56 bpm, APIG=421/62 mmhg, SpO2=98 % 8:34:58 Wire removed 8:39:44 HR=55 bpm, OJLO=974/65 mmhg, SpO2=96.0 % 8:40:21 Pressure channel 1 zeroed. After removing the current catheter a AL 1 GUIDE CATHETER FR 6 was advanced over a WIRE, EXCHANG E 260CM 8:41:33 3MMJ 260CM. 8:44:46 HR=57 bpm, NIBP=99/56 mmhg, SpO2=95.0 % 8:45:53 2500 units HEPARIN given in lab by Matthias Valadez, RN in Left Hand via Peripheral IV. Ordered by Geronimo Castañeda. 8:46:34 A WIRE, BALANCE MIDDLEWEIGHT 190CM 190CM was inserted via Radial (right). 8:49:45 HR=55 bpm, NIBP=97/57 mmhg, SpO2=96 % 5 mL (Bolus) RADIAL COCKTAIL given in lab by Geronimo Castañeda in Right Radial via Radial. Using [So lution Name]. 8:50:37 Reason: Ntg 200mcg Verapamil 2.5mg A STENT, 2.5 8MM CECILIO 2.5 8MM was advanced through a AL 1 GUIDE CATHETER FR 6 over a WIRE, VICENTE CE 8:53:01 MIDDLEWEIGHT 190CM 190CM. 8:53:58 Activated Clotting Time Drawn 8:55:23 HR=57 bpm, VQNA=154/71 mmhg, SpO2=97.0 % A STENT, 2.5 8MM CECILIO 2.5 8MM was deployed using a 30 JESUS INDEFLATOR at 18 atmospheres for 36 se conds in 8:56:02 the PDA Mid. 8:58:19 Delivery device removed 8:59:47 HR=56 bpm, ZFME=538/69 mmhg, SpO2=97.0 % 9:00:41 A PRIME WIRE, VERRATA 185CM 185CM was inserted via Radial (right). 9:01:52 100 mcg NTG (IC) given in lab by Geronimo Castañeda in Right Radial via Intra-coronary. 9:02:20 ACT (Normal Range 90-180) = 454 9:04:56 HR=58 bpm, OJLB=378/67 mmhg, SpO2=97.0 % 9:05:22 Flow Wire was was placed in the OM1 Prox. The IFR measures 0.98 Percent. 9:06:43 100 mcg NTG (IC) given in lab by Geronimo Castañeda in Right Radial via Intra-coronary. 9:09:47 HR=56 bpm, INGE=510/73 mmhg 9:09:57 Wires removed 9:10:24 Catheter was removed 9:10:31 Case End (Physician broke scrub) 9:12:44 Activated Clotting Time Drawn 9:14:46 HR=55 bpm, PKOY=777/69 mmhg, SpO2=98.0 % Radial Compression Device Used. 12 mLs of air placed in BAND, RADIAL COMPRESSION TR SHORT 24 24C M. Affected 9:15:12 hand 98 % O2 saturation. 9:15:19 No case complications noted. 9:15:21 Cine recording checked. 9:15:22 Bedside Report will be given. 9:15:23 Implantable Device card placed in patient's chart. 9:15:23 Report called to floor. 9:15:28 A Left Heart Cath was performed. 9:17:48 ACT (Normal Range 90-180) = 270 9:19:49 HR=54 bpm, BVOI=071/72 mmhg, SpO2=98.0 % 9:21:21 600 mg PLAVIX given in lab by Matthias Valadez, RN via Oral. Ordered by Geronimo Castañeda. 9:23:43 Vitals capture stopped. 9:24:28 Patient moved to [facility] Study - Contrast Media Used In Study Contrast Total Opened (mL) Total Used (mL) Total Wasted (mL) Omnipaque 300 170 130 End Study - Maximum Contrast Load Max Contrast Load (mL) 595.7 End Study - Radiation Exposure Fluoro Time (minutes) 22.6 End Study - Patient Disposition Complications Transferred To Interventional Outcome No Telemetry Bed successful
--- NOTE | 2018-06-01 12:07 | MA ---
cc: Geronimo Castañeda MD, Joshua A MD DATE: 06/01/2018 PROCEDURES PERFORMED: Coronary angiography, stenting of the posterior descending artery branch of the left circumflex coronary artery, flow reserve measurement of the circumflex obtuse marginal branch. BRIEF HISTORY: Senthil Barnes is a 58-year-old man admitted to the hospital with typical angina and evidence for an acute non-ST segment elevation OR. He was kept on heparin over the weekend. INR has come down to normal. He was on IV heparin at the start of the catheterization. DESCRIPTION OF PROCEDURE: The patient was brought to the cardiac quality lab assoc in a fasting state. The right groin and right wrist were prepped and draped in sterile fashion. Using 1% lidocaine for local anesthesia, a Terumo slender sheath was easily inserted into the right radial artery. Left coronary angiography was then performed using the JAPANESE 3.5 diagnostic Tequila catheter. Multiple angulated projections were obtained to try to determine which was the infarct-related vessel. The LAD and circumflex marginal branch were both diseased, but did not appear to be critical. After a careful study, it was decided the left posterior descending artery branch was most likely the infarct-related vessel. I decided not to inject the right coronary artery because it was noted to be nondominant. I then tried different guiding catheters to engage the left main. I was unsuccessful with an XB 4 and an XB 3.5 and an AL1, I was able to successfully engage the left main. Intravenous heparin was administered. A therapeutic ACT was achieved. I then wired the left posterior descending artery branch with a BMW wire. I then directly stented the posterior descending artery branch using a 2.5 x 8 mm Brenton stent at 18 atmospheres. Angiography demonstrated a superb result. I then introduced a pressure wire and did IFR measurements of the circumflex marginal branch with a value of 0.98. Wires were removed. The guide was carefully removed without traumatizing the left main and then removed over a wire. The sheaths were removed with a trauma band in place. There were no complications. TOTAL CONTRAST LOAD: 170 mL. TOTAL HEME LOSS: 50 mL. FINDINGS: 1. Hemodynamics: Aortic pressure was 90/61 with a mean of 74. 2. Cardiac fluoroscopy: There is a bileaflet [facility]. Giorgi aortic valve, which demonstrates normal leaflet motion and no abnormal valve rocking. 3. Coronary angiography: Left main coronary artery was large and normal appearing. There was a very proximal diagonal almost ramus intermediate like. There was about 20% ostial disease in the LAD in a ____-like fashion. At the bifurcation, the LAD is normal. The LAD is irregular before the bifurcation of the second diagonal. Second diagonal has about a 20% ostial disease. The mid LAD at this level has about 40% stenosis. The remainder of the LAD is irregular. The circumflex artery is dominant. It gives off a very large obtuse marginal branch, which has an irregular 50% proximal stenosis. IFR of this vessel was 0.98. Continuation of left coronary artery gives off the left posterior descending artery branch. It has a focal eccentric 80% stenosis proximally. 4. Results of intervention: Following stenting of the left posterior descending artery branch, a 0% residual stenosis had been achieved with JEANNIE 3 flow pre and post. CONCLUSIONS: 1. Left dominant coronary system. 2. Moderate disease of the LAD and circumflex marginal branch. 3. Severe disease of the left posterior descending artery branch, not successfully stented with a drug-eluting stent. PLAN: The patient will be kept on aspirin, Plavix and warfarin at discharge. We will discontinue the aspirin after 3 weeks and just do Plavix and warfarin for a period of minimum of 3 months, ideally 6 months if stable. MD JESSICA Flowers/sv/chepe , 09:30 AM , 09:38 AM
[2018-06-01] MEDS: Insulin NovoLOG Aspart Correctional Sugar Inj SQ SCH ×4 (12:44→21:21)
--- NOTE | 2018-06-01 15:55 | P.PNIM ---
Subjective Interval history: no cp Physical Exam Vital signs: Vital Signs 05/31/18 16:00 05/31/18 17:00 05/31/18 18:00 Temperature 97.7 F Pulse Rate 82 72 74 Respiratory Rate 16 Blood Pressure 110/72 Pulse Oximetry 96 05/31/18 19:00 05/31/18 20:00 05/31/18 21:00 Temperature 97.4 F L Pulse Rate 80 87 80 Respiratory Rate 19 Blood Pressure 124/72 Pulse Oximetry 99 05/31/18 21:06 05/31/18 22:00 05/31/18 23:00 Temperature Pulse Rate 69 82 82 Respiratory Rate 20 Blood Pressure Pulse Oximetry 100 06/01/18 00:00 06/01/18 01:00 06/01/18 02:00 Temperature Pulse Rate 88 73 75 Respiratory Rate 18 Blood Pressure 128/77 Pulse Oximetry 99 06/01/18 03:00 06/01/18 03:10 06/01/18 04:00 Temperature Pulse Rate 66 71 68 Respiratory Rate 18 Blood Pressure Pulse Oximetry 06/01/18 05:00 06/01/18 06:00 06/01/18 10:15 Temperature Pulse Rate 64 64 52 L Respiratory Rate 16 Blood Pressure Pulse Oximetry 97 Intake & Output 05/31/18 06/01/18 06/01/18 18:59 06:59 18:59 Intake Total 810 / 810 240 / 240 15 / 15 Output Total 1500 / 1500 550 / 550 Balance -690 / -690 -310 / -310 15 / 15 Weight 95.3 kg Intake: IV 250 / 250 15 / 15 Heparin/NS PF Inj 1,500 ML @ 0 15 / 15 mls/hr .ROUTE .[facility] Rx#: [id number] Heparin/D5W 25,000 U/250 mL 25, 250 / 250 000 unit In 250 ml @ Per Protocol IV.CONT TITRATE PRN Rx #:[id number] Oral 560 / 560 240 / 240 Output: Urine 1500 / 1500 550 / 550 Other: Date of Last Bowel Movement 05/31/18 heart reg lung cta Results - Labs CBC & Chem 7: 05/31/18 04:10 05/31/18 04:10 Laboratory Results - last 24 hr 05/31/18 05/31/18 06/01/18 16:54 19:47 00:20 PT INR APTT 35.5 H POC Glucose 137 H 185 H 06/01/18 06/01/18 04:43 12:02 PT 10.9 INR 1.1 APTT 49.2 H D POC Glucose 156 H Assessment and Plan - Assessment (1) Chest pain Code(s): R07.9 - Chest pain, unspecified Status: Acute Plan: - Pt is 58 y/o M with h/o CAD, Atrial fibrillation on coumadin, AVR, COPD, and current smoker - Pt admitted to [facility] with c/o chest pain with radiation to the left arm, neck, and back. - Pt's Emergency Department Aide is Dr. Massey. - troponins: 0.02, 0.06, 0.28 - serial EKGs: RBBB unchanged from previous EKGs - atenolol, lipitor, heparin gtt, LHC today. pda stent. will go home on triple anticoagulation therapy. coumadin/plavix/asa stop scheduled ntg. pt request due to h/a COPD - prednisone 5mg daily outpt, - duonebs - continue singular, anoro ellipta DM2 - HgA1C 8.7 (03/2018) - hold amaryl, metformin, and actos - SSI HTN, essential, stable - cozaar held - continue atenolol Atrial Fibrillation - heparin and coumadin resumed - atenolol (2) COPD (chronic obstructive pulmonary disease) Code(s): J44.9 - Chronic obstructive pulmonary disease, unspecified Status: Chronic (3) Diabetes Code(s): E11.9 - Type 2 diabetes mellitus without complications Status: Chronic (4) History of aortic valve replacement Code(s): Z95.2 - Presence of prosthetic heart valve Status: Chronic (1) Chest pain Qualifiers: Chest pain type: unspecified Qualified Code(s): R07.9 - Chest pain, unspecified
[2018-06-01] MEDS: Umeclindinium 62.5 MCG/Vilanterol 25 MCG Inhaler INH SCH (18:29)
[2018-06-01] MEDS: Montelukast 10 MG Tablet PO SCH (18:29)
[2018-06-01] MEDS: Heparin Drip 25,000 UNIT/250 ML BAG IV.CONT PRN (21:01)
[2018-06-02] MEDS: Sod Chloride 0.9% Inj 1,000 ML IV.CONT SCH ×3 (00:34→16:57)
[2018-06-02 08:08] LABS: Prothrombin Time 10.6 sec (9.8-11.6)
--- NOTE | 2018-06-02 08:51 | P.PNIM ---
Subjective Interval history: no cp. in chair. eager to ambulate. Physical Exam Vital signs: Vital Signs 06/01/18 10:00 06/01/18 10:15 06/01/18 11:00 Temperature Pulse Rate 52 L 52 L 55 L Respiratory Rate 16 Blood Pressure Pulse Oximetry 97 06/01/18 12:00 06/01/18 13:00 06/01/18 14:00 Temperature 98.0 F Pulse Rate 65 58 L 60 Respiratory Rate 16 Blood Pressure 124/83 Pulse Oximetry 95 06/01/18 15:00 06/01/18 16:00 06/01/18 17:00 Temperature 98.0 F Pulse Rate 53 L 58 L 56 L Respiratory Rate 16 Blood Pressure 130/77 Pulse Oximetry 97 06/01/18 18:00 06/01/18 19:24 06/01/18 20:00 Temperature 97.9 F Pulse Rate 68 70 89 Respiratory Rate 19 20 Blood Pressure 141/84 H Pulse Oximetry 99 97 06/02/18 00:00 06/02/18 01:00 06/02/18 02:00 Temperature 97 F L Pulse Rate 78 76 78 Respiratory Rate 20 Blood Pressure 147/82 H Pulse Oximetry 97 06/02/18 03:00 06/02/18 04:00 06/02/18 05:00 Temperature 97.4 F L Pulse Rate 66 70 72 Respiratory Rate 20 Blood Pressure 129/81 Pulse Oximetry 99 06/02/18 05:37 06/02/18 06:00 06/02/18 08:00 Temperature 97.8 F Pulse Rate 64 66 75 Respiratory Rate 16 16 Blood Pressure Pulse Oximetry 97 06/02/18 08:45 06/02/18 08:46 Temperature Pulse Rate 83 Respiratory Rate 18 Blood Pressure Pulse Oximetry 97 Intake & Output 06/01/18 06/02/18 06/02/18 18:59 06:59 18:59 Intake Total 1937 / 1937 240 / 240 Output Total 1685 / 1685 800 / 800 Balance 252 / 252 -560 / -560 Weight 94.4 kg Intake: IV 1265 / 1265 Heparin/NS PF Inj 1,500 ML @ 0 15 / 15 mls/hr .ROUTE .[facility] Rx#: [id number] Heparin/D5W 25,000 U/250 mL 25, 250 / 250 000 unit In 250 ml @ Per Protocol IV.CONT TITRATE PRN Rx #:[id number] NS Inj 1,000 ML @ 100 mls/hr IV 1000 / 1000 .CONT .[facility]10[facility] Rx#:[id number] Oral 672 / 672 240 / 240 Output: Urine 1685 / 1685 800 / 800 Other: Date of Last Bowel Movement 06/01/18 nad in chair lung cta no edema Results - Labs CBC & Chem 7: 05/31/18 04:10 05/31/18 04:10 Laboratory Results - last 24 hr 06/01/18 06/01/18 06/01/18 12:02 17:57 20:50 PT INR APTT POC Glucose 156 H 151 H 130 H 06/01/18 06/02/18 06/02/18 22:30 06:11 06:11 PT 10.6 INR 1.0 APTT 36.8 H D 46.6 H D POC Glucose 06/02/18 08:20 PT INR APTT POC Glucose 250 H Assessment and Plan - Assessment (1) Chest pain Code(s): R07.9 - Chest pain, unspecified Status: Acute Plan: - Pt is 58 y/o M with h/o CAD, Atrial fibrillation on coumadin, AVR, COPD, and current smoker - Pt admitted to [facility] with c/o chest pain with radiation to the left arm, neck, and back. - Pt's Gi Asst is Dr. Massey. - troponins: 0.02, 0.06, 0.28 - serial EKGs: RBBB unchanged from previous EKGs - atenolol, lipitor, heparin gtt, [facility] 06/01. pda stent. will go home on triple anticoagulation therapy. coumadin/plavix/asa...heparin bridge. stop scheduled ntg. pt request due to h/a COPD - prednisone 5mg daily outpt, - duonebs - continue singular, anoro ellipta DM2 - HgA1C 8.7 (03/2018) - resume amaryl. metformin soon. - SSI HTN, essential, stable - cozaar held - continue atenolol Atrial Fibrillation - heparin and coumadin resumed - atenolol (2) COPD (chronic obstructive pulmonary disease) Code(s): J44.9 - Chronic obstructive pulmonary disease, unspecified Status: Chronic (3) Diabetes Code(s): E11.9 - Type 2 diabetes mellitus without complications Status: Chronic (4) History of aortic valve replacement Code(s): Z95.2 - Presence of prosthetic heart valve Status: Chronic (1) Chest pain Qualifiers: Chest pain type: unspecified Qualified Code(s): R07.9 - Chest pain, unspecified
[2018-06-02] MEDS: Gabapentin 300 MG Capsule PO SCH ×2 (09:11→09:14)
[2018-06-02] MEDS: Atenolol 25 MG Tablet PO SCH ×2 (09:12→09:13)
[2018-06-02] MEDS: Insulin NovoLOG Aspart Correctional Sugar Inj SQ SCH ×4 (09:13→21:15)
[2018-06-02] MEDS: Glimepiride 4 MG Tablet PO SCH (10:08)
[2018-06-02 11:55] LABS: Hematocrit 41.3 % (39.0-51.0); Hemoglobin 13.8 gm/dL (13.0-17.0); Mean Corpuscular HGB Conc 33.4 % (32.0-36.0); Mean Corpuscular Hemoglobin 29.1 pg (27.0-34.0); Mean Corpuscular Volume 87.1 fL (80.0-100.0); Mean Platelet Volume 8.9 fL (7.0-11.0); Platelet Count 176 th/mm3 (150-450); Red Blood Count 4.75 mil/mm3 (4.50-5.90); Red Cell Distribution Width 14.7 % (11.6-17.2)
[2018-06-02 12:18] LABS: Calcium 8.7 mg/dL (8.5-10.1); Carbon Dioxide 26.2 meq/L (21.0-32.0); Potassium 4.2 meq/L (3.5-5.1)
[2018-06-02] MEDS: Heparin Drip 25,000 UNIT/250 ML BAG IV.CONT PRN (15:16)
[2018-06-02] MEDS: Umeclindinium 62.5 MCG/Vilanterol 25 MCG Inhaler INH SCH (15:53)
[2018-06-02] MEDS: Montelukast 10 MG Tablet PO SCH (17:13)
--- NOTE | 2018-06-02 17:34 | P.PNCA ---
Subjective Interval history: saw patient this am. no angina or sob. Physical Exam Vital signs: Vital Signs 06/01/18 18:00 06/01/18 19:24 06/01/18 20:00 Temperature 97.9 F Pulse Rate 68 70 89 Respiratory Rate 19 20 Blood Pressure 141/84 H Pulse Oximetry 99 97 06/02/18 00:00 06/02/18 01:00 06/02/18 02:00 Temperature 97 F L Pulse Rate 78 76 78 Respiratory Rate 20 Blood Pressure 147/82 H Pulse Oximetry 97 06/02/18 03:00 06/02/18 04:00 06/02/18 05:00 Temperature 97.4 F L Pulse Rate 66 70 72 Respiratory Rate 20 Blood Pressure 129/81 Pulse Oximetry 99 06/02/18 05:37 06/02/18 06:00 06/02/18 07:00 Temperature Pulse Rate 64 66 64 Respiratory Rate 16 Blood Pressure Pulse Oximetry 06/02/18 08:00 06/02/18 08:45 06/02/18 08:46 Temperature 97.8 F Pulse Rate 70 83 Respiratory Rate 16 18 Blood Pressure 135/82 Pulse Oximetry 97 97 06/02/18 09:00 06/02/18 10:00 06/02/18 11:00 Temperature Pulse Rate 82 74 75 Respiratory Rate Blood Pressure Pulse Oximetry 06/02/18 12:00 06/02/18 12:50 06/02/18 13:00 Temperature 98.0 F Pulse Rate 50 L 66 66 Respiratory Rate 16 18 Blood Pressure 130/79 Pulse Oximetry 96 06/02/18 14:00 06/02/18 15:00 06/02/18 15:08 Temperature Pulse Rate 62 60 68 Respiratory Rate 18 Blood Pressure Pulse Oximetry 93 L 06/02/18 15:47 06/02/18 16:00 06/02/18 17:00 Temperature 97.6 F Pulse Rate 67 76 79 Respiratory Rate 20 Blood Pressure 141/81 H Pulse Oximetry 95 Intake & Output 06/01/18 06/02/18 06/02/18 18:59 06:59 18:59 Intake Total 1937 / 1937 240 / 240 1250 / 1250 Output Total 1685 / 1685 800 / 800 Balance 252 / 252 -560 / -560 1250 / 1250 Weight 94.4 kg Intake: IV 1265 / 1265 1250 / 1250 Heparin/NS PF Inj 1,500 ML @ 0 15 / 15 mls/hr .ROUTE .[facility] Rx#: [id number] Heparin/D5W 25,000 U/250 mL 25, 250 / 250 250 / 250 000 unit In 250 ml @ Per Protocol IV.CONT TITRATE PRN Rx #:[id number] NS Inj 1,000 ML @ 100 mls/hr IV 1000 / 1000 .CONT .[facility]10[facility] Rx#:[id number] Oral 672 / 672 240 / 240 Output: Urine 1685 / 1685 800 / 800 Other: Date of Last Bowel Movement 06/01/18 Narrative: Alert Chest clear CV S1S2 RRR Abd soft Right Wrist OK No edema Assessment and Plan - Assessment (1) H/O mechanical aortic valve replacement Code(s): Z95.2 - Presence of prosthetic heart valve Status: Acute Plan: Needs heparin or lovenox until INR >2. OK with me to switch to lovenox and discharge. (2) Non-STEMI (non-ST elevated myocardial infarction) Code(s): I21.4 - Non-ST elevation (NSTEMI) myocardial infarction Status: Acute Plan: Currently stable. Plan cardiac cath tomorow morning. Informed consent. (3) Coronary artery disease Code(s): I25.10 - Atherosclerotic heart disease of [place] coronary artery without angina pectoris Status: Acute (4) Obesity Code(s): E66.9 - Obesity, unspecified Status: Acute (5) COPD (chronic obstructive pulmonary disease) Code(s): J44.9 - Chronic obstructive pulmonary disease, unspecified Status: Chronic (6) Tobacco dependence Code(s): F17.200 - Nicotine dependence, unspecified, uncomplicated Status: Acute Plan: Counseled on complete cessation (7) Stented coronary artery Code(s): Z95.5 - Presence of coronary angioplasty implant and graft Status: Acute Plan: Cont ASA 81mg x 3 weeks, Clopidogrel 75 mg daily x 6 months + warfarin
--- NOTE | 2018-06-02 19:56 | ECG ---
Date Performed: 06/01/2018 Time Performed: 12:17:04 PTAGE: 58 years EKG: Sinus rhythm Left anterior fascicular block IV conduction defect Abnormal ECG PREVIOUS TRACING : 05/29/2018 10.20 Since the previous tracing, no significant change noted DOCTOR: Dao Mason Interpretating Date/Time 06/02/2018 19:53:22
--- NOTE | 2018-06-02 19:56 | ECG ---
Date Performed: 06/02/2018 Time Performed: 04:59:52 PTAGE: 58 years EKG: Sinus rhythm Left axis deviation RBBB with left anterior fascicular block Abnormal ECG PREVIOUS TRACING : 06/01/2018 12.17 Since the previous tracing, no significant change noted DOCTOR: Dao Mason Interpretating Date/Time 06/02/2018 19:53:34
[2018-06-03] MEDS: Sod Chloride 0.9% Inj 1,000 ML IV.CONT SCH (06:18)
[2018-06-03 06:33] LABS: Activated Partial Thrombo Time 58.9 sec (24.3-30.1); INR 1.2 Ratio; Prothrombin Time 12.3 sec (9.8-11.6)
[2018-06-03 06:50] LABS: Calcium 8.3 mg/dL (8.5-10.1); Carbon Dioxide 23.4 meq/L (21.0-32.0); Potassium 3.7 meq/L (3.5-5.1)
[2018-06-03 08:26] VITALS: TEMP 98
--- NOTE | 2018-06-03 08:36 | P.DCO ---
- Diagnosis (1) Diabetes - Home Health Nursing Order: Medical education, Signs/symptoms of disease process, Medication education-adverse effect, Nursing assessment with vital signs Instructions: Check his inr daily starting on 06/04 x 5 days. Please run the inr's stat and call his pcp office Dr Campo at [facility] office. His lovenox to stop when inr 2 or greater. 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 His inr on 06/03 is 1.2 - Certification I have seen patient Senthil Moreira on 06/03/18. My clinical findings support the need for the requested home health care services because: Need for psychosocial assistance I certify that my clinical findings support that this patient is homebound because: Need for psychosocial assistance (1) Diabetes Qualifiers: Diabetes mellitus type: type 2
--- NOTE | 2018-06-03 08:44 | P.PNIM ---
Subjective Interval history: eager for dc. no cp. Physical Exam Vital signs: Vital Signs 06/02/18 08:45 06/02/18 08:46 06/02/18 09:00 Temperature Pulse Rate 83 82 Respiratory Rate 18 Blood Pressure Pulse Oximetry 97 06/02/18 10:00 06/02/18 11:00 06/02/18 12:00 Temperature 98.0 F Pulse Rate 74 75 50 L Respiratory Rate 16 Blood Pressure 130/79 Pulse Oximetry 96 06/02/18 12:50 06/02/18 13:00 06/02/18 14:00 Temperature Pulse Rate 66 66 62 Respiratory Rate 18 Blood Pressure Pulse Oximetry 06/02/18 15:00 06/02/18 15:08 06/02/18 15:47 Temperature 97.6 F Pulse Rate 60 68 67 Respiratory Rate 18 20 Blood Pressure 141/81 H Pulse Oximetry 93 L 95 06/02/18 16:00 06/02/18 17:00 06/02/18 18:00 Temperature Pulse Rate 76 79 60 Respiratory Rate Blood Pressure Pulse Oximetry 06/02/18 19:00 06/02/18 19:01 06/02/18 19:02 Temperature Pulse Rate 70 70 Respiratory Rate 16 Blood Pressure Pulse Oximetry 97 06/02/18 20:00 06/02/18 21:00 06/02/18 22:00 Temperature 97.9 F Pulse Rate 70 68 68 Respiratory Rate 16 Blood Pressure 147/88 H Pulse Oximetry 97 06/02/18 23:00 06/03/18 00:00 06/03/18 01:00 Temperature 97.8 F Pulse Rate 64 71 80 Respiratory Rate 16 Blood Pressure 141/87 H Pulse Oximetry 96 06/03/18 02:00 06/03/18 03:00 06/03/18 04:00 Temperature 97.9 F Pulse Rate 67 76 84 Respiratory Rate 16 Blood Pressure 119/81 Pulse Oximetry 95 06/03/18 05:00 06/03/18 06:00 06/03/18 08:00 Temperature 98.0 F Pulse Rate 62 71 87 Respiratory Rate 16 Blood Pressure 116/82 Pulse Oximetry 95 06/03/18 08:26 Temperature Pulse Rate 80 Respiratory Rate 17 Blood Pressure Pulse Oximetry 94 L Intake & Output 06/02/18 06/03/18 06/03/18 18:59 06:59 18:59 Intake Total 1930 / 1930 420 / 420 Output Total 4400 / 4400 1050 / 1050 Balance -2470 / -2470 -630 / -630 Weight 93 kg Intake: IV 1250 / 1250 180 / 180 Heparin/D5W 25,000 U/250 mL 25, 250 / 250 180 / 180 000 unit In 250 ml @ Per Protocol IV.CONT TITRATE PRN Rx #:[id number] Oral 680 / 680 240 / 240 Output: Urine 4400 / 4400 1050 / 1050 Other: # Bowel Movements 0 heart reg lung cta abd s/nt ext no edema Results - Labs CBC & Chem 7: 06/02/18 11:30 06/03/18 04:56 Laboratory Results - last 24 hr 06/02/18 06/02/18 06/02/18 11:26 11:30 11:30 WBC 7.0 RBC 4.75 Hgb 13.8 Hct 41.3 MCV 87.1 MCH 29.1 MCHC 33.4 RDW 14.7 Plt Count 176 MPV 8.9 PT INR APTT Sodium 140 Potassium 4.2 Chloride 108 H Carbon Dioxide 26.2 Anion Gap 6 BUN 8 Creatinine 0.94 Estimated GFR 83 L POC Glucose 213 H Random Glucose 221 H Calcium 8.7 06/02/18 06/02/18 06/02/18 11:30 17:04 18:11 WBC RBC Hgb Hct MCV MCH MCHC RDW Plt Count MPV PT INR APTT 46.5 H 46.3 H Sodium Potassium Chloride Carbon Dioxide Anion Gap BUN Creatinine Estimated GFR POC Glucose 91 Random Glucose Calcium 06/02/18 06/03/18 06/03/18 21:08 04:56 04:56 WBC RBC Hgb Hct MCV MCH MCHC RDW Plt Count MPV PT 12.3 H INR 1.2 APTT 58.9 H D Sodium 143 Potassium 3.7 Chloride 109 H Carbon Dioxide 23.4 Anion Gap 11 BUN 9 Creatinine 0.90 Estimated GFR 87 L POC Glucose 182 H Random Glucose 126 H Calcium 8.3 L 06/03/18 08:24 WBC RBC Hgb Hct MCV MCH MCHC RDW Plt Count MPV PT INR APTT Sodium Potassium Chloride Carbon Dioxide Anion Gap BUN Creatinine Estimated GFR POC Glucose 178 H Random Glucose Calcium Assessment and Plan - Assessment (1) Coronary artery disease Code(s): I25.10 - Atherosclerotic heart disease of [place] coronary artery without angina pectoris Status: Acute Plan: Code(s): R07.9 - Chest pain, unspecified Status: Acute Plan: - Pt is 58 y/o M with h/o CAD, Atrial fibrillation on coumadin, AVR, COPD, and current smoker - Pt admitted to [facility] with c/o chest pain with radiation to the left arm, neck, and back. - Pt's Box Sorter is Dr. Massey. - troponins: 0.02, 0.06, 0.28 - serial EKGs: RBBB unchanged from previous EKGs - atenolol, lipitor, heparin gtt, [facility] 06/01. pda stent. will go home on triple anticoagulation therapy. coumadin/plavix/asa...heparin bridge. stop scheduled ntg. pt request due to h/a Dr Castañeda called and want pt dc'ed on lovenox bridge to coumadin, asa x 3 weeks , plavix x 6months and inr to follow with pcp. I called pcp office and updated. [facility] order for daily inr x 5 days and stop lovenox when 2 or more. pt agrees with plan COPD - prednisone 5mg daily outpt, - duonebs - continue singular, anoro ellipta DM2 - HgA1C 8.7 (03/2018) - resume amaryl. metformin soon. - SSI HTN, essential, stable - cozaar held - continue atenolol Atrial Fibrillation - heparin and coumadin resumed - atenolol (2) COPD (chronic obstructive pulmonary disease) Code(s): J44.9 - Chronic obstructive pulmonary disease, unspecified Status: Chronic (3) Diabetes Code(s): E11.9 - Type 2 diabetes mellitus without complications Status: Chronic (4) History of aortic valve replacement Code(s): Z95.2 - Presence of prosthetic heart valve Status: Chronic (1) Chest pain Qualifiers: Chest pain type: unspecified Qualified Code(s): R07.9 - Chest pain, unspecified (2) History of aortic valve replacement Code(s): Z95.2 - Presence of prosthetic heart valve Status: Chronic (3) Diabetes Code(s): E11.9 - Type 2 diabetes mellitus without complications Status: Chronic (3) Diabetes Qualifiers: Diabetes mellitus type: type 2
[2018-06-03] MEDS: Atenolol 25 MG Tablet PO SCH (09:52)
[2018-06-03] MEDS: Insulin NovoLOG Aspart Correctional Sugar Inj SQ SCH (09:52)
[2018-06-03] MEDS: Gabapentin 300 MG Capsule PO SCH (09:52)
[2018-06-03] MEDS: Glimepiride 4 MG Tablet PO SCH (09:52)
[2018-06-03] MEDS ORDERED: Enoxaparin Inj 100 MG/ML Syringe SQ ONE (11:00)
[2018-06-03 11:21] VITALS: BP 164/74; PULSE 71; RESP 16; O2SAT 97
--- NOTE | 2018-06-11 10:53 | P.DS ---
Date of admission: 05/28/18 23:37 Primary care physician: Ozzie Campo Anticipated date of discharge: 06/03/18 Brief History from admission: 58-year-old male presents with chest pain that started approximately 9pm last night until 3 am.. Pain described as heavy and did radiate to left arm and neck and back. Denies any SOB,Nausea,diaphoresis or any other symptoms . Patient has COPD and uses nebulizer and prednisone and chronic oxygen at 2 liters.. He states he follows with Dr. Ramos and has aortic valve replacement and takes Coumadin as well as atrial fibrillation. He states his last heart cath was about a year or so ago and he had 40% blockage of one vessel in 20% in the other. DS: Diagnosis - Discharge Diagnosis (1) Coronary artery disease Status: Acute (2) History of aortic valve replacement Status: Chronic (3) Diabetes Status: Chronic DS: Medications - Discharge Medications Prescriptions: aspirin 81 mg PO DAILY 21 Days #21 tab clopidogrel [Plavix] 75 mg PO DAILY #30 tab DS: Summary Hospital Course: (1) Coronary artery disease Code(s): I25.10 - Atherosclerotic heart disease of [place] coronary artery without angina pectoris Status: Acute Plan: Code(s): R07.9 - Chest pain, unspecified Status: Acute Plan: - Pt is 58 y/o M with h/o CAD, Atrial fibrillation on coumadin, AVR, COPD, and current smoker - Pt admitted to [facility] with c/o chest pain with radiation to the left arm, neck, and back. - Pt's [facility] Counselor is Dr. Massey. - troponins: 0.02, 0.06, 0.28 - serial EKGs: RBBB unchanged from previous EKGs - atenolol, lipitor, heparin [facility] 06/01. pda stent. will go home on triple anticoagulation therapy. coumadin/plavix/asa...heparin bridge. stop scheduled ntg. pt request due to h/a Dr Castañeda called and want pt dc'ed on lovenox bridge to coumadin, asa x 3 weeks , plavix x 6months and inr to follow with pcp. I called pcp office and updated. [facility] order for daily inr x 5 days and stop lovenox when 2 or more. pt agrees with plan COPD - prednisone 5mg daily outpt, - duonebs - continue singular, anoro ellipta DM2 - HgA1C 8.7 (03/2018) - resume amaryl. metformin soon. - SSI HTN, essential, stable - cozaar held - continue atenolol Atrial Fibrillation - heparin and coumadin resumed - atenolol (2) COPD (chronic obstructive pulmonary disease) Code(s): J44.9 - Chronic obstructive pulmonary disease, unspecified Status: Chronic (3) Diabetes Code(s): E11.9 - Type 2 diabetes mellitus without complications Status: Chronic (4) History of aortic valve replacement Code(s): Z95.2 - Presence of prosthetic heart valve Status: Chronic _ - Time Spent with Patient Total time spent providing and/or coordinating discharge services: Greater than 30 minutes Exam Vital signs: [email or web address] cta abd s/nt ext no edema Results Procedures completed during hospitalization: [facility] - Impressions ITS Impressions Chest X-Ray 05/28/18 22:28 CONCLUSION: Linear scarring or atelectasis at the lung bases. There is also some chronic pleural change at the left lateral base. Discharge Plan - Discharge Disposition Patient Disposition: W/Home Health Service - Discharge Condition Condition: Stable - Discharge Order Discharge Orders: Discharge Order (Routine); Ordered 06/03/18 Ordered By: Damien Card - Discharge Details Anticipated Discharge Date: 06/03/18 Discharge Comment: dc home today after 11am lovenox shot. - Physicians Team Primary Care Provider: Ozzie Campo Attending Provider: David Meyers Other Providers: Geronimo Castañeda MD ; [facility]
== END 2018-06-03 12:15 | disposition home health service (06) ==
LOC: HCIS 22:03 → PHEDA 22:03 → PHED 22:03 → PHEDA 05-29 00:35 → PH3 05-29 00:39 → HCIS 05-29 19:35
PROVIDERS: ADMIT Hospitalist; ATTEND Hospitalist